=== PATIENT | female | born 1945 | race Caucasian/White ===

== ENCOUNTER 2019-10-13 14:04 | Outpatient (CLI) | payer MEDICARE, SELFPAY ==
--- NOTE | ~2019-10-13 | CT_ITS ---
EXAMINATION: CT chest w con DATE: 10/13/2019 14:29 INDICATION: Lung cancer TECHNIQUE: Transaxial computed tomographic images of the chest were obtained after the administration of 75 cc of Omnipaque 350 intravenous contrast. The dose-length product (DLP) was 196.30 mGy-cm. Ite rative reconstruction was used. COMPARISON: 07/15/2019, 04/05/2019 FINDINGS: There are changes of left partial pneumonectomy. Mild emphysema is noted. There is elevatio n of the right hemidiaphragm. The lungs are free of focal airspace opacities. There is mild dependent atelectasis. A right internal jugular Port-A-Cath ends with its tip in the distal superior vena cava . The heart size is normal. There is an approximately 3.4 x 2.5 cm subcarinal lymph node. There is mo derate thoracic spondylosis. There is a new, subtle low attenuating mass in liver segment measurin g 4.0 x 3.0 cm (image 96). IMPRESSION: 1. Enlarged subcarinal lymph node and new mass right hepatic lobe, concerning for metastatic disease. Reviewed, dictated and finalized at location A. ESSOR OF SURGERY IMPRESSION: 1. Enlarged subcarinal lymph node and new mass right hepatic lobe, concerning f or metastatic disease.
[2019-10-13 14:25] LABS: Blood Urea Nitrogen 23 mg/dL (8-26); Estimated Glomerular Filt Rate > 60
== END 2019-10-13 14:05 | disposition home or self-care (01) ==
LOC: ANHIMG 14:06
PROVIDERS: PCP Internal Medicine; Visit Provider Internal Medicine Hematology & Oncology
DX: C34.32 Malignant neoplasm of lower lobe, left bronchus or lung (principal)
CPT/HCPCS: 71260; Q9967

== ENCOUNTER 2019-10-20 13:31 | Outpatient (CLI) | payer MEDICARE, SELFPAY ==
--- NOTE | ~2019-10-20 | PE_ITS ---
EXAMINATION: PET skull to mid thigh DATE: 10/20/2019 16:05 INDICATION: Malignant neoplasm of lower lobe of left lung. TECHNIQUE: 9.976 mCi of 18-fluorodeoxyglucose (18-FDG) was administered i.v. Low dose computed tomogr aphy (CT) images were acquired from the base of the brain to the proximal thighs for attenuation clay ection and anatomic localization. Automated exposure control was employed. Dose-length product (DLP) was 694 mGy-cm. Positron emission tomography (PET) images were acquired in the same distribution. COMPARISON: Chest CT 10/13/2019, PET/CT 09/02/2018, CT 07/31/2018 FINDINGS: Head/neck: There is increased activity in the oral cavity and glottis without CT correlate, likely ph ysiologic. There are no pathologically enlarged lymph nodes. There is a right internal jugular port w ith tip at superior cavoatrial junction. Chest: There is mild emphysema. There are changes of left lower lobectomy. Calcified pulmonary nodule s and calcified hilar lymph nodes are consistent with old granulomatous disease. No pleural effusion. The heart size is normal. There are coronary artery calcifications. There is a small pericardial eff usion. There is subcarinal lymphadenopathy with increased activity. Again seen is elevation of right hemidiaphragm. There are old left rib fractures. Abdomen/pelvis/proximal thighs: There is diffuse hepatic steatosis. There is a 3.8 cm mass in segment of the liver with maximum SUV of 10.8. There are changes of cholecystectomy. There is a small sli ding hiatal hernia. Calcifications in the spleen are consistent with old granulomatous disease. The p ancreas and adrenal glands are normal. There is a 3 mm stone in right kidney. There is a 2.0 cm hemor rhagic cyst in left kidney inferior pole. There are no dilated loops of bowel. There is diverticulosi s of the colon without evidence of diverticulitis. There are no pathologically enlarged lymph nodes. There is no free intraperitoneal fluid. There is no osseous malignancy. IMPRESSION: 1. Liver mass and subcarinal lymphadenopathy with increased activity, consistent with metastatic dise ase. Reviewed, dictated and finalized at location A. NA SEARCHER IMPRESSION: 1. Liver mass and subcarinal lymphadenopathy with increased activity, consisten t with metastatic disease.
[2019-10-20 14:09] LABS: Glucose Point of Care 160 (65-105)
== END 2019-10-20 13:32 | disposition home or self-care (01) ==
PROVIDERS: PCP Internal Medicine; Visit Provider Internal Medicine Hematology & Oncology
DX: C34.32 Malignant neoplasm of lower lobe, left bronchus or lung (principal); R16.0 Hepatomegaly, not elsewhere classified; R59.0 Localized enlarged lymph nodes
CPT/HCPCS: 78815; A9552

== ENCOUNTER 2019-11-01 11:00 | Outpatient (CLI) | payer MEDICARE, SELFPAY ==
--- NOTE | ~2019-11-01 | MR_ITS ---
EXAMINATION: MR brain/brain stem wo/w con EXAM DATE: 11/01/2019 13:01 INDICATION: Left lower lobe lung cancer. TECHNIQUE: Magnetic resonance imaging (MRI) of the brain/brain stem obtained without contrast. Sagit connie T1, axial diffusion, gradient echo (T2*), T1, T2, FLAIR sequences obtained. Patient was then inj ected with 13 cc intravenous Multihance contrast. Axial and coronal postcontrast T1 weighted sequence s obtained. There is no prior study for comparison. FINDINGS: There is a small, subcentimeter right parietal bone signal abnormality, most likely venous mallory (there is no restricted diffusion within this to suggest metastatic disease). There are no areas of restricted diffusion to suggest acute infarction. There is no acute hemorrhage seen on the T2*, a hemosiderin sensitive sequence. No intraparenchymal brain mass lesion. There is mild periventricul ar and subcortical T2/FLAIR signal hyperintensity, nonspecific but probably related to small vessel i schemic disease (microangiopathy). There is moderate prominence of the sulci and ventricles related to cerebral atrophy. There are no extra-axial collections. Flow voids are seen in the cerebral ar teries on the T2-weighted sequences consistent with their expected patency. The orbits are unremarka ble. Soft tissue is unremarkable. IMPRESSION: 1. Small left parietal lobe lesion more likely venous mallory. 2. Chronic age related findings. Reviewed, dictated and finalized at location A.
== END 2019-11-01 11:01 | disposition home or self-care (01) ==
PROVIDERS: PCP Internal Medicine; Visit Provider Internal Medicine Hematology & Oncology
DX: C34.32 Malignant neoplasm of lower lobe, left bronchus or lung (principal)
CPT/HCPCS: 70553; A9577

== ENCOUNTER 2020-02-01 12:26 | Outpatient (CLI) | payer MEDICARE, SELFPAY ==
--- NOTE | ~2020-02-01 | CT_ITS ---
EXAMINATION: CT chest abdomen pelvis w con DATE: 02/01/2020 13:09 INDICATION: Malignant neoplasm of the left lower lobe TECHNIQUE: Transaxial computed tomographic images of the chest, abdomen, and pelvis were obtained aft er the administration of 100 cc of Omnipaque 350 intravenous contrast. The dose-length product (DLP) was 965.99 mGy-cm. Automated exposure control and iterative reconstruction technique were employed. COMPARISON: 10/20/2019, 10/13/2019 FINDINGS: CHEST CT: There is mild emphysema. There are changes of left lower lobectomy. Lymphadenopathy has developed in the upper anterior mediastinum with a new 3.1 x 2.9 cm lymph node mass identified. Subcarinal lymphad enopathy is stable. There is atelectasis in the right lower lobe. Calcified bilateral hilar lymph nod es are consistent with old granulomatous disease. A right internal jugular Port-A-Cath ends with its tip at the distal superior vena cava. The heart size is normal. There is no pleural effusion or pneum othorax. ABDOMEN/PELVIS CT: The previously described mass in liver segment has slightly decreased in size measuring 2.8 cm, pr eviously 3.8 cm. The liver is diffusely low in attenuation when compared with the spleen, consistent with hepatic steatosis. The gallbladder is surgically absent. Punctate calcifications in an otherwise normal spleen likely represent healed granulomatous disease. The pancreas and adrenal glands are nor mal. Cysts of the kidneys measure up to 1.8 cm on the left. Nonobstructing stones of the right kidney measure up to 3 mm. There is calcified atherosclerosis of the aorta and many of the other arteries. No pathologically enlarged abdominal or pelvic lymph nodes are identified. There is no free intraperi toneal gas or evidence of bowel obstruction. Colonic diverticulosis is present without evidence of di verticulitis. A moderate volume of colonic stool is present. There is moderate lumbar spondylosis. IMPRESSION: 1. Interval development of lymphadenopathy in the upper mediastinum, stable subcarinal lymphadenopath y, and decreased size of a right hepatic lobe mass, consistent with mixed therapy response. Reviewed, dictated and finalized at location A. IMPRESSION: 1. Interval development of lymphadenopathy in the upper mediastinum, stable sub carinal lymphadenopathy, and decreased size of a right hepatic lobe mass, consi stent with mixed therapy response.
[2020-02-01 13:00] LABS: Estimated Glomerular Filt Rate > 60
== END 2020-02-01 12:27 | disposition home or self-care (01) ==
PROVIDERS: PCP Internal Medicine; Visit Provider Internal Medicine Hematology & Oncology
DX: C34.32 Malignant neoplasm of lower lobe, left bronchus or lung (principal)
CPT/HCPCS: 36415; 71260; 74177; Q9967

== ENCOUNTER 2020-02-17 17:46 | Observation (INO) | payer MEDICARE, SELFPAY ==
--- NOTE | ~2020-02-17 | CT_ITS ---
EXAMINATION: CT brain wo con DATE: 02/17/2020 18:54 INDICATION: Right hand paresis TECHNIQUE: Computed tomography (CT) of the head was performed without intravenous contrast. The mA wa s adjusted according to patient size. Iterative reconstruction technique was employed. Exam dose: 60 5.33 mGy-cm total exam DLP. COMPARISON: 11/01/2019 MRI brain FINDINGS: Chronic lacunar infarct of the right basal ganglia. Bilateral carotid siphon internal carotid artery calcifications. There is nonspecific diminished atte nuation of the subcortical and periventricular cerebral white matter, likely due to chronic small ves melonie ischemic changes. There is moderate cerebral and cerebellar atrophy. No intracranial mass lesion or hemorrhage, midline shift or mass effect is evident. No subdural or ep idural hematoma. No fracture or bone destruction of the cranial vault. The mastoid air cells and included paranasal sinuses are normally developed and aerated. IMPRESSION: Chronic lacunar infarct of right basal ganglia Cerebral atherosclerosis and chronic small vessel ischemic changes of the cerebral white matter No acute intracranial finding Reviewed, dictated and finalized at Location A. Reviewed, dictated and finalized at location A. IMPRESSION: Chronic lacunar infarct of right basal ganglia Cerebral atherosclerosis and chronic small vessel ischemic changes of the cereb ral white matter No acute intracranial finding
[2020-02-17 17:49] VITALS: BP 158/94; PULSE 95; RESP 18; TEMP 36.9; O2SAT 96
--- NOTE | 2020-02-17 18:48 | ED.GENADULT ---
HPI - General Adult General Chief complaint: Urogenital-Female Stated complaint: UTI Time Seen by Provider: 02/17/20 18:19 Source: patient Mode of arrival: ambulatory Limitations: no limitations History of Present Illness HPI narrative: This patient is a 74 year old female with history of lung cancer with mets who presents for evaluation of a UTI. Patient states that 3 days ago she developed increased urinary frequency, dysuria. She states today her urinary frequency has worsened. She also noticed a small amount of blood in her urine. She denies nausea, vomiting, fever, or chills. Her family at bedside states he brought her to ER because he noticed that she had difficulty righting with her right hand today. PAtient states it feels better now. She denies any other complaints. Her oncologist is Dr. Abbott Related Data Home Medications Medication Instructions Recorded Confirmed aspirin 81 mg PO DAILY 11/02/19 02/17/20 bupropion HCl [Wellbutrin SR] 150 mg PO QAM 11/02/19 02/17/20 cholecalciferol (vitamin D3) 2,000 unit PO DAILY 11/02/19 02/17/20 [Vitamin D3] escitalopram oxalate [Lexapro] 5 mg PO DAILY 11/02/19 02/17/20 escitalopram oxalate [Lexapro] 10 mg PO DAILY 11/02/19 02/17/20 fenofibrate 150 mg PO DAILY 11/02/19 02/17/20 ferrous sulfate [Iron (ferrous 325 mg PO DAILY 11/02/19 02/17/20 sulfate)] magnesium 250 mg PO DAILY 11/02/19 02/17/20 metformin 500 mg PO BID 11/02/19 02/17/20 slrpanpr-bix-JX-lycopen-lutein 1 tablet PO DAILY 11/02/19 02/17/20 [Centrum Silver] omega 3-gdi-zei-fish oil [[place]-3] See Rx Instructions .ROUTE .COMPLEX 11/02/19 02/17/20 rosuvastatin [Crestor] 20 mg PO DAILY 11/02/19 02/17/20 semaglutide [Ozempic] 1 mg SUBCUT WEEKLY 01/05/20 02/17/20 Allergies Allergy/AdvReac Type Severity Reaction Status Date / Time lisinopril AdvReac Severe COUGH Verified 02/17/20 18:41 Review of Systems Review of Systems: All systems reviewed & are unremarkable except as noted in HPI and below Constitutional: Constitutional: Denies chills, Denies fever(s) and Denies weakness ENT: Denies dizziness Respiratory: Respiratory: Denies cough, Denies dyspnea and Denies wheezing Gastrointestinal: Gastrointestinal: Denies abdominal pain, Denies diarrhea, Denies nausea and Denies vomiting Genitourinary: Genitourinary: Reports hematuria, Reports nocturia and Reports dysuria Musculoskeletal: Musculoskeletal: Denies back pain Neurologic: Reports focal weakness (right hand difficulty) [facility] Past Medical History Medical History (Updated 02/18/20 @ 03:53 by Gavi Mcgee MD) Diabetes mellitus Hyperlipidemia Small cell carcinoma Surgical History Surgical History (Updated 02/17/20 @ 21:38 by Al Pandey MD) History of cholecystectomy Family History Family History Other Cerebrovascular accident Diabetes mellitus Family history of cardiovascular disease Family history of chronic obstructive pulmonary disease Family history of malignant neoplasm Hypertension Social History Social History Smoking packs per day: 1 Smoking cigarettes per day: 20.0 Years smoked: 35 Smoking pack-years: 35.00 Smoking status: Former smoker Tobacco type: cigarettes Second hand tobacco smoke exposure: Yes Smoking end date: 02/16/95 Alcohol intake: unknown Substance use: former Substance use type: does not use Gender identity (if verbalized by the patient): Female Spiritual care concerns: No Exam Narrative: Exam Narrative: GENERAL: Well-appearing, well-nourished, and in no acute distress. HEAD: Normocephalic, atraumatic EYES: PERRLA and EOMI, conjunctiva clear without discharge EARS: TM's clear bilaterally without erythema or dullness NOSE: Nares clear, no rhinorrhea or epistaxis THROAT:Mucous membranes moist, Oropharynx normal without erythema, exudate, peritonsi
[2020-02-17 19:02] LABS: Add Urine Microscopic? YES; Appearance Urine Cloudy (Clear); Bilirubin Urine Negative (Negative); Blood Urine 3+ (Negative); Color Urine Yellow (Yellow); Glucose Urine UA Negative (Negative); Ketones Urine Negative (Negative); Leukocyte Esterase Ur 3+ LEU/UL (Negative); Mucus Urine Rare /lpf; Nitrate Urine Negative (Negative); Protein Urine 2+ mg/dL (Negative); RBC Urine >75 /hpf (0-2); Specific Grav Ur 1.014 (1.001-1.035); Squamous Epithelial Cell Urine Rare /hpf (Few); WBC Urine >75 /hpf
[2020-02-17 19:08] LABS: Basophils Absolute Auto 0.1 K/mm3 (0.0-0.1); Basophils Percent Auto 0.4 % (0.2-1.2); Eosinophils Absolute Auto 0.4 K/mm3 (0-0.3); Eosinophils Percent Auto 2.4 % (0-4.4); Hematocrit 37.2 % (37.0-47.0); Hemoglobin 11.9 g/dL (12.0-15.0); Immature Granulocyte Absolute 0.06 K/mm3 (0.00-0.031); Immature Granulocyte Percent A 0.4 % (0-0.5); Lymphocytes Percent Auto 10.1 % (18.3-44.2); Mean Corpuscular Hemoglobin 30.4 pg (26-34); Mean Corpuscular Volume 95.1 fl (80-100); Mean Platelet Volume 9.3 fl (7.4-10.4); Neutrophils Absolute Auto 11.8 K/mm3 (1.3-6.7); Neutrophils Percent Auto 79.7 % (45.5-73.1); Platelet Count Result 251 k/mm3 (150-375); Red Blood Count 3.91 M/mm3 (4.2-5.4); Red Cell Distribution Width 15.3 % (11.5-14.5); White Blood Count 14.8 K/mm3 (4.5-10.0)
[2020-02-17 19:18] VITALS: BP 145/83; PULSE 90; RESP 17; O2SAT 96
[2020-02-17 19:18] LABS: INR 0.9; Partial Thromboplastin Time 27.9 SECONDS (22.3-36.8); Prothrombin Time 12.2 Seconds (11.1-14.7)
[2020-02-17 19:20] LABS: Alanine Aminotransferase 17 U/L (4-35); Albumin Level 4.3 g/dL (3.5-5.1); Alkaline Phosphatase 65 U/L (38-126); Aspartate Amino Transferase 30 U/L (14-36); Bilirubin,Total 0.2 mg/dL (0.2-1.3); Blood Urea Nitrogen 16 mg/dL (7-17); Calcium 9.5 mg/dL (8.4-10.2); Carbon Dioxide 24 mmol/L (22-30); Chloride 103 mmol/L (98-107); Estimated CRCL calculation 61 ml/min; Estimated Glomerular Filt Rate > 60; Glucose 138 mg/dL (65-105); Sodium 137 mmol/L (137-145)
[2020-02-17 20:36] VITALS: BP 148/74; PULSE 89; RESP 17; O2SAT 98
--- NOTE | 2020-02-17 21:08 | ADMGEN ---
This patient, Magdalena Waddell, was admitted to 2 Medical Room 260-. Patient/family oriented to hospital policies and general routines including ID bracelet, bed and alarms, visiting hours, pain management, procedures, bathroom and other care routines, personal items, smoking policy, room service/diet, and visiting hours. Valuables list has been completed. Pt admitted at 2049. Information on how to activate the Rapid Response Team has been discussed. Patient/Family are encouraged to report perceived risks to care and to ask questions if they do not understand what they are told or what they should do.
--- NOTE | 2020-02-17 21:27 | PM.IMHP ---
H&P: HPI History of Present Illness Chief complaint: UTI, right hand weakness, Narrative: This is a pleasant 74 year old Diabetic female with known small cell lung cancer receiving chemotherapy who presented to the hospital with urinary symptoms for the past 2 days. She complains of increased urinary frequency, pressure, and mild dysuria. She has also noticed small blood clots in her urine. This morning the patient's son also noticed that she was having difficulty writing with her right hand and stated that she felt like she was having a hard time holding the pen in her hand. She denies any recent fevers, chills, shortness of breath, headache, blurry vision, double vision, facial droop, slurred speech, numbness, tingling, chest pain, abdominal pain, difficulty swallowing, slurred speech, head trauma, passing out, or seizure like activity. In the ER tonight the patient was evaluated and found to have an abnormal urinalysis. She was treated with IV antibiotics and we have been asked to admit her to the hospital for a possible CVA/TIA? On my encounter with the patient she is asymptomatic and has no complaints at this time. I had the patient write her name and make various drawings. The patient was able to write and draw without any difficulty and admitted to me that her difficulty has resolved. Review of Systems Review of Systems: All systems reviewed & are unremarkable except as noted in HPI and below PMFSH Past Medical History Medical History (Updated 02/18/20 @ 03:53 by Gavi Mcgee MD) Diabetes mellitus Hyperlipidemia Small cell carcinoma Surgical History Surgical History (Updated 02/17/20 @ 21:38 by Al Pandey MD) History of cholecystectomy Family History Family History Other Cerebrovascular accident Diabetes mellitus Family history of cardiovascular disease Family history of chronic obstructive pulmonary disease Family history of malignant neoplasm Hypertension Social History Social History Smoking packs per day: 1 Smoking cigarettes per day: 20.0 Years smoked: 35 Smoking pack-years: 35.00 Smoking status: Former smoker Tobacco type: cigarettes Second hand tobacco smoke exposure: Yes Smoking end date: 02/16/95 Alcohol intake: unknown Substance use: former Substance use type: does not use Gender identity (if verbalized by the patient): Female Spiritual care concerns: No Meds Home Medications and Allergies Home Medications Medication Instructions Recorded Confirmed Type Centrum Silver 1 tablet PO DAILY 11/02/19 02/17/20 History [place]-3 See Rx Instructions .ROUTE .COMPLEX 11/02/19 02/17/20 History aspirin 81 mg PO DAILY 11/02/19 02/17/20 History bupropion HCl [Wellbutrin SR] 150 mg PO QAM 11/02/19 02/17/20 History cholecalciferol (vitamin D3) 2,000 unit PO DAILY 11/02/19 02/17/20 History [Vitamin D3] escitalopram oxalate [Lexapro] 5 mg PO DAILY 11/02/19 02/17/20 History escitalopram oxalate [Lexapro] 10 mg PO DAILY 11/02/19 02/17/20 History fenofibrate 150 mg PO DAILY 11/02/19 02/17/20 History ferrous sulfate [Iron (ferrous 325 mg PO DAILY 11/02/19 02/17/20 History sulfate)] magnesium 250 mg PO DAILY 11/02/19 02/17/20 History metformin 500 mg PO BID 11/02/19 02/17/20 History rosuvastatin [Crestor] 20 mg PO DAILY 11/02/19 02/17/20 History Ozempic 1 mg SUBCUT WEEKLY 01/05/20 02/17/20 History amoxicillin-pot clavulanate 1 tablet PO Q12H 5 Days #10 tablet 02/18/20 Rx Allergies Allergy/AdvReac Type Severity Reaction Status Date / Time lisinopril AdvReac Severe COUGH Verified 02/17/20 18:41 Vital Signs Vital Signs - 24 hr 02/17/20 17:49 02/17/20 19:18 02/17/20 20:36 Temperature 36.9 C Pulse Rate 95 90 89 Respiratory Rate 18 17 17 Blood Pressure 158/94 H 145/83 H 148/74 H Pulse Oximetry 96 96 98 Exam Const: General: cooperativ
[2020-02-17 21:35] VITALS: PULSE 97
[2020-02-17 22:00] VITALS: BP 139/72; PULSE 87; RESP 16; TEMP 36.5; O2SAT 94; BMI 28.2
[2020-02-17 23:22] LABS: Glucose Point of Care 126 (65-105)
[2020-02-18] VITALS: PULSE 92
[2020-02-18 04:00] VITALS: PULSE 77
[2020-02-18 06:00] VITALS: BP 108/91; PULSE 91; RESP 18; TEMP 36.7; O2SAT 96
[2020-02-18 06:21] LABS: Basophils Absolute Auto 0.1 K/mm3 (0.0-0.1); Basophils Percent Auto 0.5 % (0.2-1.2); Eosinophils Absolute Auto 0.5 K/mm3 (0-0.3); Eosinophils Percent Auto 4.7 % (0-4.4); Hematocrit 35.8 % (37.0-47.0); Hemoglobin 11.3 g/dL (12.0-15.0); Immature Granulocyte Absolute 0.04 K/mm3 (0.00-0.031); Immature Granulocyte Percent A 0.4 % (0-0.5); Lymphocytes Absolute Auto 1.58 K/mm3 (0.9-3.2); Lymphocytes Percent Auto 15.2 % (18.3-44.2); Mean Corpuscular HGB Conc 31.6 g/dl (32-36); Mean Corpuscular Hemoglobin 29.6 pg (26-34); Mean Corpuscular Volume 93.7 fl (80-100); Mean Platelet Volume 9.3 fl (7.4-10.4); Monocytes Absolute Auto 1.1 K/mm3 (0.1-0.6); Monocytes Percent Auto 10.3 % (2.6-8.5); Neutrophils Absolute Auto 7.1 K/mm3 (1.3-6.7); Neutrophils Percent Auto 68.9 % (45.5-73.1); Platelet Count Result 235 k/mm3 (150-375); Red Blood Count 3.82 M/mm3 (4.2-5.4); White Blood Count 10.4 K/mm3 (4.5-10.0)
[2020-02-18 06:33] LABS: Alanine Aminotransferase 16 U/L (4-35); Albumin Level 4.2 g/dL (3.5-5.1); Alkaline Phosphatase 56 U/L (38-126); Aspartate Amino Transferase 26 U/L (14-36); Bilirubin,Total 0.3 mg/dL (0.2-1.3); Blood Urea Nitrogen 13 mg/dL (7-17); Calcium 9.2 mg/dL (8.4-10.2); Carbon Dioxide 25 mmol/L (22-30); Chloride 102 mmol/L (98-107); Cholesterol 100 mg/dL (0-200); Estimated CRCL calculation 61 ml/min; Estimated Glomerular Filt Rate > 60; Glucose 154 mg/dL (65-105); HDL Direct 39 mg/dL; Potassium 3.6 mmol/L (3.4-5.0); Sodium 137 mmol/L (137-145); Triglycerides 121 mg/dL (<150)
[2020-02-18 06:44] LABS: LDL Cholesterol Direct 41 mg/dL
[2020-02-18 07:59] LABS: Glucose Point of Care 169 (65-105)
[2020-02-18 08:00] VITALS: PULSE 80
[2020-02-18] MEDS: metFORMIN HCL 500 MG TABLET PO (09:57)
[2020-02-18] MEDS: FERROUS SULFATE 324 MG TABLET PO (09:57)
[2020-02-18] MEDS: ESCITALOPRAM OXALATE 5 MG TABLET PO (09:57)
[2020-02-18] MEDS: ASPIRIN 81 MG CHEWABLE TABLET PO (09:57)
[2020-02-18] MEDS: MULTIVITAMINS /C LUTEIN (CENTRUM SILVER) TABLET *BKC 1 TAB PO (09:57)
[2020-02-18] MEDS: ROSUVASTATIN 10 MG TABLET 20 MG PO (09:58)
[2020-02-18] MEDS: CHOLECALCIFEROL 1,000 UNIT TABLET 2000 UNITS PO (09:58)
--- NOTE | 2020-02-18 10:00 | PM.DS ---
DS: Admitting Diagnosis Admitting Diagnosis Admitting Diagnosis: UTI DS: Discharge Diagnosis Discharge Diagnosis (1) UTI (urinary tract infection): Qualifiers: Urinary tract infection type: site unspecified Hematuria presence: with hematuria Qualified Code(s): N39.0 - Urinary tract infection, site not specified; R31.9 - Hematuria, unspecified Code(s): N39.0 - Urinary tract infection, site not specified Status: Acute Assessment and Plan: Date of Service 02/18/20 Ms. Waddell is a pleasant 74yo F with history of metastatic lung cancer, type 2 diabetes mellitus, and hyperlipidemia who presented to the ED with symptoms of urinary urgency, hesitancy and burning. UA was grossly abnormal and she was started on empiric IV antibiotic therapy with ceftriaxone. She also noted on arrival she was having difficulty writing with her right hand, which was resolved on day of discharge. CT brain showed chronic lacunar infarct of right basal ganglia, with no acute intracranial abnormalities. She had no focal neurological deficits, facial droop, or dysphasia on day of discharge. She did not know about the old CVA seen on CT and cannot recall a previous instance of stroke-like symptoms. We discussed reducing risk of subsequent strokes and she will continue on her ASA and statin therapy. She follows with Sandeep Abbott and Karin for metastatic lung cancer and has been undergoing radiation therapy. Recent PET October 2019 showed a liver mass. She will continue to follow with her oncology recommendations at discharge. She was hemodynamically stable and feeling well. Her urinary symptoms were resolved. She was discharged with oral augmentin to complete the course. After discharge, urine culture has grown multiple organisms. Blood cultures are still pending with no growth to date and will be followed to final. She was stable for discharge 02/18/20 with instructions to follow up with PCP. (2) Difficulty writing: Code(s): R68.89 - Other general symptoms and signs Status: Resolved Assessment and Plan: Admitted for ? rule out TIA. CT brain noted above. Patient is right handed. Patch Setter strength was equal BÁRBARA and she was able to write her name for me day of discharge. (3) Diabetes mellitus: Qualifiers: Diabetes mellitus type: type 2 Diabetes mellitus half-way insulin use: without half-way use Diabetes mellitus complication status: without complication Qualified Code(s): E11.9 - Type 2 diabetes mellitus without complications Code(s): E11.9 - Type 2 diabetes mellitus without complications Status: Chronic Assessment and Plan: Continue her home regimen at discharge; metformin and ozempic. (4) Hyperlipidemia: Qualifiers: Hyperlipidemia type: unspecified Qualified Code(s): E78.5 - Hyperlipidemia, unspecified Code(s): E78.5 - Hyperlipidemia, unspecified Status: Chronic Assessment and Plan: Continue her home statin therapy. (5) Small cell carcinoma: Code(s): C80.1 - Malignant (primary) neoplasm, unspecified Status: Chronic Assessment and Plan: Continue heme onc recommendations. DS: Summary Status at Discharge Overall status at discharge: patient is back to baseline Time Spent with Patient Time attestation: Total time spent providing and/or coordinating discharge services: 35 minutes Exam Narrative: Exam Narrative: Last Vital Signs Temp 98.0 F 02/18/20 06:00 Pulse 80 02/18/20 08:00 Resp 18 02/18/20 06:00 BP 108/91 H 02/18/20 06:00 Pulse Ox 96 02/18/20 06:00 General: Female resting sitting up in bed in no acute distress. HEENT: Normocephalic, EOMI, oral mucosa moist. C
== END 2020-02-18 12:10 | disposition home or self-care (01) ==
LOC: ANHED 18:19 → ANH2MED 20:24
PROVIDERS: Physician Assistant; Admitting Provider Family Medicine; Emergency Provider General Practice; PCP Internal Medicine; Visit Provider Family Medicine
DX: N39.0 Urinary tract infection, site not specified (principal); R31.9 Hematuria, unspecified; R68.89 Other general symptoms and signs; C34.90 Malignant neoplasm of unspecified part of unspecified bronchus or lung; C79.9 Secondary malignant neoplasm of unspecified site; E11.9 Type 2 diabetes mellitus without complications; E78.5 Hyperlipidemia, unspecified; Z79.899 Other long term (current) drug therapy; Z87.891 Personal history of nicotine dependence
CPT/HCPCS: 36415; 70450; 80053; 80061; 81001; 84443; 85025; 85610; 85730; 87040; 87086; 87088; 96374; 99285; A9270; G0378; J0696

== ENCOUNTER 2020-03-06 12:07 | Outpatient (CLI) | payer MEDICARE, SELFPAY ==
--- NOTE | ~2020-03-06 | MR_ITS ---
EXAMINATION: MR brain/brain stem wo con DATE: 03/06/2020 15:13 INDICATION: Other cerebral infarction. TECHNIQUE: Magnetic resonance imaging (MRI) of the brain and brainstem was performed without intraven ous contrast. Sequences included sagittal and axial T1-weighted FSE, axial diffusion-weighted FS EPI, axial T2*-weighted GRE, axial T2-weighted FLAIR Propeller, and axial T2-weighted Propeller. Apparent diffusion coefficient (ADC) maps were created. COMPARISON: Brain MRI 11/01/2019, head CT 02/17/2020 FINDINGS: There are scattered areas of nonspecific increased T2-weighted signal intensity in the cere bral white matter. There is an old lacunar infarct in the right basal ganglia. There is no intracrani al hemorrhage, acute infarction, or abnormal intracranial mass lesion. The ventricles are normal in s ize. The orbits are normal. The paranasal sinuses are clear. There is a trace right mastoid effusion. IMPRESSION: 1. Old lacunar infarct in the right basal ganglia. 2. Mild nonspecific cerebral white matter disease, which likely represents chronic small vessel ische alex disease, stable from 11/01/2019. Reviewed, dictated and finalized at location A. IMPRESSION: 1. Old lacunar infarct in the right basal ganglia. 2. Mild nonspecific cerebral white matter disease, which likely represents washer carcass alexx small vessel ischemic disease, stable from 11/01/2019.
--- NOTE | ~2020-03-06 | PE_ITS ---
EXAMINATION: PET skull to mid thigh DATE: 03/06/2020 14:14 INDICATION: Malignant neoplasm of the left lower lobe TECHNIQUE: Blood glucose level was 197 mg/dL. 9.686 mCi of 18-fluorodeoxyglucose (18-FDG) was adminis tered i.v. Low dose computed tomography (CT) images were acquired from the base of the brain to the p roximal thighs for attenuation correction and anatomic localization. Positron emission tomography (PE T) images were acquired in the same distribution beginning 61 minutes after injection. The dose-lengt h product (DLP) was 636.73 mGy-cm. COMPARISON: 02/01/2020, 10/20/2019 FINDINGS: Head/neck: There is an 8 mm lymph node adjacent to the left thyroid lobe which demonstrates abnormal FDG uptake with an SUV max of 3.6 (image 152). No additional abnormal FDG uptake is identified. Chest: There is mild emphysema. Changes of left lower lobectomy are again noted. There is atelectasis of the right lower lobe. Subcarinal lymphadenopathy with abnormal FDG uptake is stable. SUV max is 5 .7. Upper mediastinal lymphadenopathy described on recent CT scan demonstrates abnormal FDG uptake wi th an SUV max of 5.8. There is a 10 mm prevascular lymph node with abnormal FDG uptake and SUV max of 3.4. A right internal jugular Port-A-Cath ends with its tip in the superior vena cava. The heart siz e is normal. Calcified coronary artery atherosclerosis is noted. There is no pleural effusion or pneu mothorax. Abdomen/pelvis/proximal thighs: There is a mass in liver segment which demonstrates abnormal FDG u ptake and SUV max of 10.5, previously 10.8. The size of the mass does not appear to be significantly changed although direct comparison is difficult without intravenous contrast. The gallbladder is surg ically absent. Punctate calcifications in an otherwise normal spleen likely represent healed granulom atous disease. The pancreas and adrenal glands are normal. There is a 4 mm nonobstructing stone of th e right kidney. The left kidney is unremarkable. There is calcified atherosclerosis of the aorta and many of the other arteries. No pathologically enlarged abdominal or pelvic lymph nodes are identified . There is no free intraperitoneal gas or evidence of bowel obstruction. Physiologic FDG activity is present in the bowel and urinary tract. Musculoskeletal: There is new abnormal FDG uptake centered in the L4 vertebral body without definite CT correlate identified. SUV max is 9.4. IMPRESSION: 1. Upper mediastinal lymphadenopathy and left lower neck lymph node with abnormal FDG uptake, unchang ed since the recent CT but new since the comparison PET/CT, consistent with metastatic disease. 2. Right hepatic lobe mass with stable FDG uptake, consistent with metastatic disease. 3. New abnormal FDG uptake in the L4 vertebral body without definite CT correlate however findings re main concerning for metastatic disease. Reviewed, dictated and finalized at location A. IMPRESSION: 1. Upper mediastinal lymphadenopathy and left lower neck lymph node with abnorm al FDG uptake, unchanged since the recent CT but new since the comparison PET/C T, consistent with metastatic disease. 2. Right hepatic lobe mass with stable FDG uptake, consistent with metastatic d isease. 3. New abnormal FDG uptake in the L4 vertebral body without definite CT correla te however findings remain concerning for metastatic disease.
[2020-03-06 12:46] LABS: Glucose Point of Care 197 (65-105)
== END 2020-03-06 12:08 | disposition home or self-care (01) ==
LOC: ANHIMG 12:10
PROVIDERS: Family Provider Internal Medicine; PCP Internal Medicine; Visit Provider Internal Medicine Hematology & Oncology
DX: I63.89 Other cerebral infarction (principal); C34.32 Malignant neoplasm of lower lobe, left bronchus or lung; R93.0 Abnormal findings on diagnostic imaging of skull and head, not elsewhere classified
CPT/HCPCS: 70551; 78815; A9552

== ENCOUNTER 2020-04-03 11:15 | Emergency (ER) | payer MEDICARE, SELFPAY ==
[2020-04-03] VITALS (17 sets, daily range): BP systolic 123–172; BP diastolic 57–129; PULSE 88–96; RESP 12–20; TEMP 36.8; O2SAT 87–97
--- NOTE | ~2020-04-03 | XR_ITS ---
EXAMINATION: XR lumbar spine 2-3V EXAM DATE: 04/03/2020 13:13 INDICATION: Low back pain. Reportedly metastatic disease on PET/CT of L4. TECHNIQUE: Lumber spine frontal, lateral, lateral L5-S1 projections for interpretation. There is no prior study for comparison. FINDINGS: There is grade 1 anterolisthesis L5 on S1. There is subacute compression fracture at the i nferior endplate of L4, better evaluated on CT scan obtained at same time. There are no osteoblastic or osteolytic lesions identified. Advanced lower lumbar facet arthropathy. Mild to moderate upper lum bar spondylosis. There is scattered aortic arteriosclerotic disease. There are cholecystectomy clips . IMPRESSION: 1. L4 inferior endplate subacute compression fracture. 2. L4-5 grade 1 anterolisthesis. 3. Advanced lower lumbar facet arthropathy. Reviewed, dictated and finalized at location B.
--- NOTE | ~2020-04-03 | CT_ITS ---
EXAMINATION: CT lumbar spine wo [facility] EXAM DATE: 04/03/2020 13:07 INDICATION: Lung cancer, metastatic disease to L4. TECHNIQUE: Spiral CT of the lumbar spine was performed without contrast. Axial, coronal and sagittal images were reviewed. The dose-length product (DLP) for this examination was 1017.02 mGy-cm. The exposure was tailored according to patient size (auto mA exposure control), and iterative reconstruct ion (ASIR) was used as additional dose reduction technique. Correlation is made to PET/CT report 03/06. FINDINGS: There is subacute compression fracture at the inferior endplate of L4 with approximately 25 % loss of this vertebral body height. No evidence of underlying metastatic lesion to suggest this is pathological; perhaps the increased uptake was due to fracture. There is no spondylolysis. There is 3 mm anterolisthesis L4 on L5 with mild to moderate disc disease. Moderate disc disease at L5-S1. Mild to moderate upper lumbar disc disease. There are no osteoblastic or osteolytic lesions identified. I ncidental 3 cm duodenal diverticulum. Scattered colonic diverticulosis. 3 mm right inferior calyceal stone. Level by level evaluation: T12-L1: There is a mild diffuse disc bulge. Facet arthropathy: Mild. Neural foraminal stenosis: No stenosis. Central canal stenosis: No stenosis. L1-L2: There is a mild diffuse disc bulge. Facet arthropathy: Mild. Neural foraminal stenosis: Mild bilateral. Central canal stenosis: Mild. L2-L3: There is a mild to moderate diffuse disc bulge. Facet arthropathy: Mild. Neural foraminal stenosis: Mild bilateral. Central canal stenosis: Mild. L3-L4: There is a mild diffuse disc bulge. Facet arthropathy: Mild to moderate. Neural foraminal stenosis: Mild bilateral. Central canal stenosis: Mild to moderate. L4-L5: There is a moderate diffuse disc bulge. Facet arthropathy: Severe. Neural foraminal stenosis: Moderate left, mild to moderate right. Central canal stenosis: Moderate. L5-S1: There is a mild to moderate diffuse disc bulge. Facet arthropathy: Mild to moderate. Neural foraminal stenosis: Moderate to severe bilateral. Central canal stenosis: Mild. IMPRESSION: 1. Subacute L4 compression fracture without evidence of underlying metastatic disease. 2. L5-S1 moderate to severe bilateral neural foraminal stenosis. 3. L4-5 grade 1 anterolisthesis, severe facet arthropathy, moderate central canal stenosis. Reviewed, dictated and finalized at location B. IMPRESSION: 1. Subacute L4 compression fracture without evidence of underlying metastatic disease. 2. L5-S1 moderate to severe bilateral neural foraminal stenosis. 3. L4-5 grade 1 anterolisthesis, severe facet arthropathy, moderate central ca nal stenosis.
--- NOTE | 2020-04-03 12:19 | ED.RECABL ---
HPI - Recheck/Abnormal Lab/Rx General Chief Complaint: Recheck/Abnormal Lab/Rx Stated Complaint: back pain Time Seen by Provider: 04/03/20 12:03 Source: patient Mode of arrival: ambulatory Limitations: other (Forgetfulness) History of Present Illness HPI narrative: Patient presents because her primary care physician, Dr.V. Aristeo Ochoa told her to come in. He said that her study showed that she could become paralyzed from cancer in her spine. The patient thinks the CAT scan or MRI was done here but there is no record of it. Her oncologist is Dr. Abbott. She is still getting chemotherapy. She previously had lung cancer with radiation and surgery. The surgery was either French or so and she cannot remember. She has back pain when she walks but not when she lays down or sits. Related Data Home Medications Medication Instructions Recorded Confirmed Centrum Silver 1 tablet PO DAILY 11/02/19 03/29/20 [place]-3 See Rx Instructions .ROUTE .COMPLEX 11/02/19 03/29/20 bupropion HCl [Wellbutrin SR] 150 mg PO QAM 11/02/19 03/29/20 cholecalciferol (vitamin D3) 2,000 unit PO DAILY 11/02/19 03/29/20 [Vitamin D3] fenofibrate 150 mg PO DAILY 11/02/19 03/29/20 ferrous sulfate [Iron (ferrous 325 mg PO DAILY 11/02/19 03/29/20 sulfate)] magnesium 250 mg PO DAILY 11/02/19 03/29/20 metformin 500 mg PO BID 11/02/19 03/29/20 rosuvastatin [Crestor] 20 mg PO DAILY 11/02/19 03/29/20 apple cider vinegar mg PO 04/03/20 Allergies Allergy/AdvReac Type Severity Reaction Status Date / Time lisinopril AdvReac Severe COUGH Verified 02/17/20 18:41 Review of Systems Review of Systems: Narrative: CONSTITUTIONAL: Denies fever, chills, or sweat ENT: Denies rhinorrhea, congestion, sore throat, or otalgia. CARDIOVASCULAR: Denies chest pain, palpitations, or edema. RESPIRATORY: Denies cough or dyspnea. GASTROINTESTINAL: Denies abdominal pain, nausea, vomiting, or diarrhea. MUSCULOSKELETAL: She has low back pain, but not joint pain, or myalgia. NEUROLOGIC: Denies headache, numbness, or weakness. All systems reviewed & are unremarkable except as noted in HPI and below PMFSH Past Medical History Medical History (Updated 04/03/20 @ 14:15 by Cindy Wynn MD) Diabetes mellitus Hyperlipidemia Small cell carcinoma Surgical History Surgical History (Updated 04/03/20 @ 12:27 by Cindy Wynn MD) History of cholecystectomy History of lobectomy of lung Family History Family History Other Cerebrovascular accident Diabetes mellitus Family history of cardiovascular disease Family history of chronic obstructive pulmonary disease Family history of malignant neoplasm Hypertension Social History Social History Smoking packs per day: 1 Smoking cigarettes per day: 20.0 Years smoked: 35 Smoking pack-years: 35.00 Smoking status: Former smoker Tobacco type: cigarettes Second hand tobacco smoke exposure: Yes Smoking end date: 02/16/95 Alcohol intake: unknown Substance use: former Substance use type: does not use Gender identity (if verbalized by the patient): Female Spiritual care concerns: No Exam Narrative: Exam Narrative: GENERAL: Well-appearing, well-nourished, and in no acute distress. HEAD: Normocephalic, atraumatic. EYES: PERRLA and EOMI. ENT: Nares clear, no rhinorrhea or epistaxis. Mucous membranes moist. NECK: Supple. CHEST: Clear to auscultation. No respiratory distress. HEART: Regular rate and rhythm. No murmur heard. Normal peripheral pulses. ABDOMEN: Soft, nontender, nondistended, normal active bowel sounds. EXTREMITIES: Normal range of motion. No edema. SKIN: Warm, dry, no rash. NEURO: No focal deficits. Alert and oriented x3. Some confusion. PSYCH: Normal mood and affect. Course Reevaluation(s) Reevaluation #1: Patient is feeling better. She is delighted to know that the CAT scan rep
--- NOTE | 2020-04-03 14:10 | PC.NURSE ---
EDP aware of Pt. fentanyl patch. EDP is ok with administration of percocet.
[2020-04-03] MEDS: oxyCODONE/ACETAMINOPHEN 5-325 MG TABLET 1 TABLET PO (14:19)
== END 2020-04-03 14:25 | disposition home or self-care (01) ==
PROVIDERS: Emergency Provider Emergency Medicine; PCP Internal Medicine
DX: C34.90 Malignant neoplasm of unspecified part of unspecified bronchus or lung (principal); M48.56XA Collapsed vertebra, not elsewhere classified, lumbar region, initial encounter for fracture; C79.9 Secondary malignant neoplasm of unspecified site; E11.9 Type 2 diabetes mellitus without complications; Z79.84 Long term (current) use of oral hypoglycemic drugs; E78.5 Hyperlipidemia, unspecified
CPT/HCPCS: 72100; 72131; 99284; A9270

== ENCOUNTER 2020-05-07 09:40 | Observation (INO) | payer MEDICARE, SELFPAY ==
[2020-05-07] VITALS (48 sets, daily range): BP systolic 90–143; BP diastolic 55–102; PULSE 90–109; RESP 11–22; TEMP 36.1–37; O2SAT 91–98; BMI 25.8
--- NOTE | ~2020-05-07 | CT_ITS ---
EXAMINATION: CT brain wo con EXAM DATE: 05/07/2020 10:52 INDICATION: Lung cancer, altered mental status. Looking for metastatic disease. TECHNIQUE: Spiral CT of the head was performed without contrast. Axial, coronal and sagittal images were reviewed. The dose-length product (DLP) for this examination was 605.33 mGy-cm. The exposure w as tailored according to patient size, and iterative reconstruction (ASIR) was used as additional dos e reduction technique. Comparison is made to prior examination from 10/22/2019. FINDINGS: Punctate old right basal ganglia lacunar infarction. There is no acute intraparenchymal hem orrhage. No evidence of intraparenchymal brain mass lesion. No evidence of acute infarction. Pleas e note that initial head CT has limited sensitivity for small or acute infarctions. There is mild to moderate periventricular and subcortical hypodensity, nonspecific but probably related to small vesse l ischemic disease. There is mild to moderate prominence of the sulci and ventricles related to cer ebral atrophy. There is intracranial carotid arteriosclerosis. There are no extra-axial collection s. There is no mass effect or midline shift. The orbits are unremarkable. Soft tissue is unremarka ble. The visualized sinuses and mastoid air cells are well aerated. IMPRESSION: 1. No evidence of intracranial metastatic disease on this noncontrast head CT. 2. Chronic age related findings. 3. Old punctate right lacunar infarction. Reviewed, dictated and finalized at location B.
--- NOTE | ~2020-05-07 | XR_ITS ---
EXAMINATION: XR chest 2V EXAM DATE: 05/07/2020 10:58 INDICATION: Cough and shortness of breath. History left-sided lung cancer. TECHNIQUE: Frontal and lateral projections of the chest obtained and reviewed. Comparison is made to prior examination from 12/02/2018. FINDINGS: Some left-sided volume loss probably from partial pneumonectomy. Right hemidiaphragm eleva tion with improvement compared to prior study. There is a right-sided internal jugular approach port acatheter. Line is intact and tip is just below the ofelia level. Cardiomediastinal silhouette is nor mal. There is pulmonary vascular congestion. Subsegmental retrocardiac opacity again noted, most consistent with scarring or atelectasis. Right tess ng is clear. No pleural effusions. No pneumothorax. There are bony degenerative changes. There are ch olecystectomy clips. IMPRESSION: 1. Subsegmental retrocardiac chronic opacity probably scarring or atelectasis. Reviewed, dictated and finalized at location B.
--- NOTE | ~2020-05-07 | MR_ITS ---
EXAMINATION: MR brain/brain stem wo/w con EXAM DATE: 05/08/2020 16:05 INDICATION: Confusion, speech disturbance. History of cancer with metastatic disease. TECHNIQUE: Magnetic resonance imaging (MRI) of the brain/brain stem obtained without contrast. Sagit connie T1, axial diffusion, gradient echo (T2*), T1, T2, FLAIR sequences obtained. Patient was then inj ected with 12 cc intravenous Multihance contrast. Axial and coronal postcontrast T1 weighted sequence s obtained. Comparison is made to prior examination from 03/06/2020. FINDINGS: There are no areas of restricted diffusion to suggest acute infarction. There is no acute hemorrhage seen on the T2*, a hemosiderin sensitive sequence. No intraparenchymal brain mass lesion. There is mild to moderate periventricular and subcortical T2/FLAIR signal hyperintensity, nonspecifi c but probably related to small vessel ischemic disease (microangiopathy). There is mild to moderat e prominence of the sulci and ventricles related to cerebral atrophy. There are no extra-axial joe ections. Flow voids are seen in the cerebral arteries on the T2-weighted sequences consistent with t heir expected patency. The orbits are unremarkable. Soft tissue is unremarkable. There are no area s of abnormal enhancement on the postcontrast images, although these sequences are limited from patie nt motion. There is no significant interval change. IMPRESSION: 1. No acute intracranial findings. 2. Chronic age related findings. Reviewed, dictated and finalized at location G.
--- NOTE | 2020-05-07 10:25 | ED.AMS ---
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 with history of metastatic lung cancer Recently having pain medication titrated upward for a pathologic spine fracture Also was apparently seen in her oncologist's office last week and had a elevated white count at that time, she was supposed to take oral antibiotics possibly for UTI but it is unclear if this occurred Arrives today with family who complains she has become increasingly somnolent and confused over the past few days The patient herself voices no new complaints, does have back pain MD complaint: altered mental status Consistency of symptoms: getting Worse Context: change in medication and cancer Related Data Home Medications Medication Instructions Recorded Confirmed Centrum Silver 1 tablet PO DAILY 11/02/19 04/25/20 [place]-3 See Rx Instructions .ROUTE .COMPLEX 11/02/19 04/25/20 bupropion HCl [Wellbutrin SR] 150 mg PO QAM 11/02/19 04/25/20 cholecalciferol (vitamin D3) 2,000 unit PO DAILY 11/02/19 04/25/20 [Vitamin D3] fenofibrate 150 mg PO DAILY 11/02/19 04/25/20 ferrous sulfate [Iron (ferrous 325 mg PO DAILY 11/02/19 04/25/20 sulfate)] magnesium 250 mg PO DAILY 11/02/19 04/25/20 metformin 500 mg PO BID 11/02/19 04/25/20 rosuvastatin [Crestor] 20 mg PO DAILY 11/02/19 04/25/20 fentanyl 1 patch TRANSDERMAL Q72H 05/03/20 05/03/20 oxycodone-acetaminophen 1 tablet PO Q4H PRN 05/03/20 05/03/20 alpha lipoic acid mg 05/07/20 aspirin 05/07/20 diphenhydramine HCl 05/07/20 escitalopram oxalate 05/07/20 rosuvastatin [Crestor] mg 05/07/20 Allergies Allergy/AdvReac Type Severity Reaction Status Date / Time lisinopril AdvReac Severe COUGH Verified 05/07/20 10:39 Review of Systems Review of Systems: All systems reviewed & are unremarkable except as noted in HPI and below Constitutional: Constitutional: Denies chills, Reports fatigue, Denies fever(s), Denies headache(s) and Denies night sweats Eyes: Eyes: Reports no additional eye complaints, Denies loss of vision and Denies other visual disturbances ENT: Denies headache(s), Denies hoarseness, Denies nasal congestion and Denies sore throat Cardiovascular: Cardiovascular: Denies chest pain, Denies leg edema, Denies palpitations and Denies dyspnea Respiratory: Respiratory: Denies cough, Denies dyspnea and Denies wheezing Gastrointestinal: Gastrointestinal: Denies abdominal pain, Denies diarrhea, Reports nausea and Denies vomiting Genitourinary: Genitourinary: Denies hematuria, Denies urinary frequency and Denies dysuria Musculoskeletal: Musculoskeletal: Denies abnormal gait, Reports back pain, Denies deformity, Reports arthralgias, Denies joint swelling, Denies muscle weakness and Denies numbness Integumentary/Breasts: Skin/Breast: Denies rash, Denies unusual bruising and Denies wounds Neurologic: Denies abnormal gait, Reports dizziness, Denies headache(s), Denies focal weakness, Denies loss of vision, Denies numbness and Reports weakness Psychiatric: Psychiatric: Reports no additional psychiatric complaints Endocrine: Endocrine: Reports fatigue and Denies palpitations Hematologic/Lymphatic: Hematologic/Lymphatic: Denies easy bleeding and Denies easy bruising Allergic/Immunologic: Allergic/Immunologic: Denies wheezing PMF Past Medical History Medical History (Updated 05/07/20 @ 14:45 by Shayne Leos MD) Diabetes mellitus Hyperlipidemia Small cell carcinoma Surgical History Surgical History (Updated 04/03/20 @ 12:27 by Cindy Wynn MD) History of cholecystectomy History of lobectomy of lung Social History Social History Smoking packs per day: 2 Smoking cigarettes per day: 40.0 Years
[2020-05-07] MEDS: LACTATED RINGERS 1,000 ML 999 ML IV CONT ×2 (10:31→15:30)
[2020-05-07 10:37] LABS: Alveolar/Arterial O2 Gradient 41.7 mmHg; Base Excess ABG 0.5 mEq/l (+/-2.0); Basophils Percent Auto 0.3 % (0.2-1.2); Device ROOM AIR; Eosinophils Absolute Auto 0.3 K/mm3 (0-0.3); Eosinophils Percent Auto 2.8 % (0-4.4); Fractional Inspired Oxygen 21 %; HCO3 ABG 25.7 mEq/l (22.0-26.0); Hematocrit 31.6 % (37.0-47.0); Hemoglobin 9.8 g/dL (12.0-15.0); Immature Granulocyte Absolute 0.06 K/mm3 (0.00-0.031); Immature Granulocyte Percent A 0.5 % (0-0.5); Lymphocytes Absolute Auto 0.88 K/mm3 (0.9-3.2); Lymphocytes Percent Auto 7.9 % (18.3-44.2); Mean Corpuscular Hemoglobin 27.7 pg (26-34); Mean Corpuscular Volume 89.3 fl (80-100); Mean Platelet Volume 9.5 fl (7.4-10.4); Modified Allen's Test Pass; Monocytes Absolute Auto 0.7 K/mm3 (0.1-0.6); Monocytes Percent Auto 6.2 % (2.6-8.5); Neutrophils Absolute Auto 9.2 K/mm3 (1.3-6.7); Neutrophils Percent Auto 82.3 % (45.5-73.1); Oxygen Content ABG 13.8 %vol (16.0-22.0); Oxygen Saturation ABG 88.5 % (95.0-100.0); Oxyhemoglobin 91.4 % THb (90.0-100.0); PCO2 ABG 43.8 mmHg (35.0-45.0); PO2 ABG 55.6 mmHg (80.0-100.0); PO2 FiO2 Ratio Arterial Blood 2.65 %; Platelet Count Result 290 k/mm3 (150-375); Red Blood Count 3.54 M/mm3 (4.2-5.4); Site Drawn RIGHT RADIAL; Total Hemoglobin 10.7 g/dL (12.0-18.0); White Blood Count 11.2 K/mm3 (4.5-10.0); pH ABG 7.386 (7.350-7.450)
[2020-05-07 10:43] LABS: Add Urine Microscopic? YES; Amorphous Sediment Urine Few; Appearance Urine Cloudy (Clear); Bacteria Urine Trace /hpf; Bilirubin Urine Negative (Negative); Blood Urine Negative (Negative); Color Urine Yellow (Yellow); Glucose Urine UA Negative (Negative); Ketones Urine Negative (Negative); Leukocyte Esterase Ur Trace LEU/UL (Negative); Mucus Urine Rare /lpf; Nitrate Urine Negative (Negative); Protein Urine 1+ mg/dL (Negative); RBC Urine 0-2 /hpf (0-2); Specific Grav Ur 1.018 (1.001-1.035); Squamous Epithelial Cell Urine Occasional /hpf (Few)
[2020-05-07 10:50] LABS: Alanine Aminotransferase 12 U/L (4-35); Albumin Level 3.4 g/dL (3.5-5.1); Alkaline Phosphatase 163 U/L (38-126); Anion Gap 6 mmol/L (8-16); Aspartate Amino Transferase 27 U/L (14-36); Bilirubin,Total 0.4 mg/dL (0.2-1.3); Blood Urea Nitrogen 15 mg/dL (7-17); Calcium 8.5 mg/dL (8.4-10.2); Carbon Dioxide 28 mmol/L (22-30); Chloride 97 mmol/L (98-107); Estimated CRCL calculation 74 ml/min; Estimated Glomerular Filt Rate > 60; Glucose 182 mg/dL (65-105); Magnesium 1.6 mg/dL (1.6-2.3); Sodium 131 mmol/L (137-145)
[2020-05-07 11:01] LABS: Troponin I < 0.012 ng/mL (0.000-0.034)
[2020-05-07 14:53] LABS: Lactic Acid Reflex 0.6 mmol/L (0.7-2.1)
--- NOTE | 2020-05-07 16:20 | PC.NURSE ---
This patient, Magdalena Waddell, was admitted to Medical Room 340-01. Patient/family oriented to hospital policies and general routines including ID bracelet, bed and alarms, visiting hours, pain management, procedures, bathroom and other care routines, personal items, smoking policy, room service/diet, and visiting hours. Valuables list has been completed. Information on how to activate the Rapid Response Team has been discussed. Patient/Family are encouraged to report perceived risks to care and to ask questions if they do not understand what they are told or what they should do.
[2020-05-07] MEDS: LACTATED RINGERS 1,000 ML 125 ML IV CONT (16:48)
--- NOTE | 2020-05-07 18:50 | PC.NURSE ---
Pt pharmacy contacted about what meds are taken at home as well as the was contacted. Med list that was sent with the pt was reviewed as well.
--- NOTE | 2020-05-07 23:30 | PM.IMHP ---
H&P: HPI History of Present Illness Date/Time: 05/07/20 23:30 Chief complaint: Altered mental status. 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 While she is alert and oriented x4 at the time my evaluation, she is repetitive and at times gives bizarre answers but is able to be redirected. Because of this, I have supplemented some of this history via a review of her electronic medical records. On routine lab work done at Dr. Abbott office last week, she was found to have an elevated white blood cell count and a subsequent urinalysis was concerning for UTI. She was started on ciprofloxacin b.i.d. and it is noted that her urine culture dated 05/03 grew out group G Streptococcus. She has been taking her antibiotics but continues to have some mild low back pain and dysuria. More recently she had an increase in her fentanyl dose from 50 to 100 mcg due to ongoing pain from osseous metastatic disease, and in fact recently started palliative radiation to the L4 vertebral body per Dr. Frazier. In any regard, when she woke this morning she was confused, reportedly alert x1, and EMS was summoned. Aside from mild leukocytosis, her workup was relatively unrevealing in the emergency department and she is being admitted overnight for further evaluation. When I come to see the patient, she is sitting in a chair at bedside and is watching television. She is in good spirits and has no complaints. She is aware why she was brought to the hospital today but is uncertain as to why she would have been confused this morning. It sounds as though her Laurent gives her her medications and she denies that she could have accidentally overdosed. She has not had fever, chills, or sweats. She denies chest pain and shortness of breath. She has had a mild cough which she attributes to recent thrush, and it does not sound as though it is productive. She complains of mild discomfort in her lower back, but cannot really describe it, and does not seem to be terribly uncomfortable. Review of Systems Review of Systems: Narrative: Twelve systems were reviewed with pertinent positives and negatives as per HPI. She denies fever, chills, and sweats. No recent travel or sick contacts. No exposure to those positive with COVID-19. She denies dysphagia and concerns for aspiration. No chest pain or shortness of breath. Her appetite is not good tonight, but she denies nausea and vomiting. No diarrhea or constipation, reportedly. She has not had any falls, near syncope, or syncope. Except as documented, all other systems were reviewed and are negative. [facility] Past Medical History Medical History (Updated 05/08/20 @ 01:08 by Bharti Esquivel PA-C) Dyslipidemia Essential hypertension History of colon polyps Large cell neuroendocrine carcinoma Initially diagnosed with stage IIB large cell neuroendocrine carcinoma arising in the left lower lobe with metastatic disease to the lymph nodes, status post lobectomy 10/21/2018 and adjuvant chemotherapy. PET scan in October 2019 demonstrated metastatic disease in the liver and now bony mets to the L4 vertebra for which she is receiving palliative radiation. Osteoarthritis Type 2 diabetes mellitus Surgical History Surgical History (Updated 05/08/20 @ 00:58 by Bharti Esquivel PA-C) History of cholecystectomy History of left knee replacement History of lobectomy of lung (~10/21/18) Family History Family History Other Cerebrovascular accident Diabetes mellitus Family history of cardiovascular disease Family history of chronic obstructive pulmonary disease Family history of malignant neoplasm Hypertension Social History Social History (Updated 05/08/20
[2020-05-08] VITALS (9 sets, daily range): BP systolic 130–144; BP diastolic 63–74; PULSE 93–125; RESP 16–18; TEMP 36.3–36.7; O2SAT 95–97
[2020-05-08] MEDS: fentaNYL CITRATE INJ (*CRX) 100 MCG/2 ML VIAL 50 MCG IV PUSH (01:13)
--- NOTE | 2020-05-08 01:19 | ECG_ITS ---
Measurements Intervals [place] Rate: 102 P: 41 CO: 142 QRS: 54 QRSD: 96 T: 51 QT: 326 QTc: 425 Interpretive Statements SINUS TACHYCARDIA VENTRICULAR PREMATURE COMPLEX DELAYED PRECORDIAL R/S TRANSITION BASELINE ARTIFACT- I, II, AVR, AVL, V1 BORDERLINE ECG Electronically Signed On 05-08-2020 12:13:27 CDT by Sandoval Lutz D.O.
[2020-05-08 07:49] LABS: Glucose Point of Care 207 (65-105)
[2020-05-08 07:52] LABS: Basophils Percent Auto 0.4 % (0.2-1.2); Eosinophils Absolute Auto 0.3 K/mm3 (0-0.3); Eosinophils Percent Auto 2.8 % (0-4.4); Hematocrit 32.9 % (37.0-47.0); Hemoglobin 10.4 g/dL (12.0-15.0); Immature Granulocyte Absolute 0.08 K/mm3 (0.00-0.031); Immature Granulocyte Percent A 0.7 % (0-0.5); Lymphocytes Absolute Auto 0.72 K/mm3 (0.9-3.2); Lymphocytes Percent Auto 6.3 % (18.3-44.2); Mean Corpuscular HGB Conc 31.6 g/dl (32-36); Mean Corpuscular Volume 88.4 fl (80-100); Mean Platelet Volume 9.4 fl (7.4-10.4); Monocytes Absolute Auto 0.9 K/mm3 (0.1-0.6); Monocytes Percent Auto 7.6 % (2.6-8.5); Neutrophils Absolute Auto 9.4 K/mm3 (1.3-6.7); Neutrophils Percent Auto 82.2 % (45.5-73.1); Platelet Count Result 319 k/mm3 (150-375); Red Blood Count 3.72 M/mm3 (4.2-5.4); Red Cell Distribution Width 15.9 % (11.5-14.5); White Blood Count 11.4 K/mm3 (4.5-10.0)
[2020-05-08] MEDS: INSULIN ASPART (*BKC) 100 UNITS/ML SUB-Q ×2 (07:57→11:49)
[2020-05-08] MEDS: ROSUVASTATIN 10 MG TABLET 20 MG PO (08:02)
[2020-05-08] MEDS: ENOXAPARIN 40 MG/0.4 ML SYRINGE SUB-Q (08:02)
[2020-05-08] MEDS: ESCITALOPRAM OXALATE 10 MG TABLET PO (08:02)
[2020-05-08] MEDS: MAGNESIUM OXIDE 400 MG TABLET PO (08:02)
[2020-05-08] MEDS: FENOFIBRATE 160 MG TABLET PO (08:03)
[2020-05-08] MEDS: ASPIRIN 81 MG CHEWABLE TABLET PO (08:03)
[2020-05-08] MEDS: CHOLECALCIFEROL 400 UNITS TABLET (VIT D) PO (08:03)
[2020-05-08] MEDS: THERAPEUTIC MULTIVITAMINS/MINERALS TAB (*BKC) 1 TABLET PO (08:03)
[2020-05-08 08:06] LABS: Anion Gap 9 mmol/L (8-16); Blood Urea Nitrogen 5 mg/dL (7-17); Calcium 8.5 mg/dL (8.4-10.2); Carbon Dioxide 24 mmol/L (22-30); Chloride 95 mmol/L (98-107); Estimated CRCL calculation 95 ml/min; Estimated Glomerular Filt Rate > 60; Glucose 216 mg/dL (65-105); Potassium 3.9 mmol/L (3.4-5.0); Sodium 128 mmol/L (137-145)
[2020-05-08] MEDS: fentaNYL (*CRX) 50 MCG PATCH TRANSDERM (09:36)
--- NOTE | 2020-05-08 10:47 | PM.IMPN ---
Progress Note: A&P Assessment and Plan (1) Confusion: Code(s): R41.0 - Disorientation, unspecified Status: Acute Assessment and Plan: Resolved today. CT brain shows old punctate right lacunar infarct without acute intracranial findings. MRI brain performed late this afternoon, still pending a final read. Hopeful for discharge tomorrow once results are back to rule out stroke and metastasis. Suspect this may have been related to the recent increase in her fentanyl from 50mcg to 100mcg. We will cut Fentanyl back to 50mcg and monitor. She is doing much better with this. 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 Suspect narcotic use/recent increase may have caused her confusion. (3) Large cell neuroendocrine carcinoma: Code(s): C7A.8 - Other malignant neuroendocrine tumors Status: Chronic Assessment and Plan: Follows with Dr Abbott and Dr Frazier for metastatic lung cancer, now recently last week started palliative radiation to L4. (4) Back pain: Qualifiers: Back pain location: back pain in unspecified location Chronicity: chronic Back pain laterality: unspecified Qualified Code(s): M54.9 - Dorsalgia, unspecified; G89.29 - Other chronic pain Code(s): M54.9 - Dorsalgia, unspecified Status: Chronic Assessment and Plan: Mets to bone. Continue home pain regimen but cut Fentanyl back to 50mcg. (5) Essential hypertension: Code(s): I10 - Essential (primary) hypertension Status: Chronic Assessment and Plan: BP stable, resume her home losartan and monitor BP. (6) Type 2 diabetes mellitus: Qualifiers: Diabetes mellitus fci insulin use: without fci use Diabetes mellitus complication status: without complication Qualified Code(s): E11.9 - Type 2 diabetes mellitus without complications Code(s): E11.9 - Type 2 diabetes mellitus without complications Status: Chronic Assessment and Plan: Resume home oral hypoglycemics. Missed her weekly Ozempic yesterday so OK to give today. Blood glucoses elevated, will monitor with accu-cheks and cover with SSI. (7) Hyponatremia: Code(s): E87.1 - Hypo-osmolality and hyponatremia Status: Acute Assessment and Plan: Down to 128. Recheck BMP in AM. Subjective Date/time seen: 05/08/20 0900 Interval history: Ms. 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 She feels improved today and feels back to her normal other than feeling weak and fatigued. She notes some mild nausea this morning but has tolerated breakfast. Denies vomiting or abdominal pain. She denies chest pain or shortness of breath. Review of Systems Review of Systems: Narrative: Twelve systems were reviewed with pertinent positives and negatives as per HPI. Exam Narrative: Exam Narrative: General: Chronically ill-appearing female resting sitting up in bed in no acute distress. HEENT: Normocephalic, EOMI, oral mucosa moist. Cardiovascular: Rate and rhythm are regular. Respiratory: Lungs clear to auscultation in all zarco. Non-labored breathing. Tolerating room air. Abdomen: Soft, non-tender, non-distended, bowel sounds present. Extremities: Peripheral pulses intact. No edema. Neuro: Alert and oriented. Answering questions appropriately. No focal neurological deficits. Speech is clear. Objective Data Vital Signs Vital Signs: Last Vital Signs Temp 98.1 F 05/08/20 14:00 Pulse 101 H 05/08/20 14:00 Resp 16 05/08/20 14
[2020-05-08 11:44] LABS: Glucose Point of Care 219 (65-105)
[2020-05-08] MEDS: LORazepam (*CRX) 0.5 MG TABLET PO ×2 (13:05→21:21)
[2020-05-08] MEDS: CENTRAL LINE FLUSH 10 ML IV PUSH ×2 (13:06→21:23)
[2020-05-08 16:39] LABS: Glucose Point of Care 183 (65-105)
[2020-05-08] MEDS: metFORMIN HCL 500 MG TABLET PO (17:13)
--- NOTE | 2020-05-08 17:33 | PDONCCN ---
HPI - Date of Consult Date/Time: 05/08/20 17:34 Requesting Physician: RENEE Haley Primary Care Provider: Adilia Gandara, - Consult Narrative Reason for consult: Metastatic non-small cell lung cancer Narrative: Magdalena Waddell is a 74 year old female This is a pleasant 74-year-old female with widely diagnosis stage II neuroendocrine carcinoma of the left lower lobe status post lobectomy in October of 2018. Unfortunately she relapsed with extensive stage small-cell lung cancer with liver involvement in October of 2019. She started second-line chemotherapy with irinotecan on March 22, 2020. She received cycle 3 day 1 on May 03. She now came into the hospital with altered mental status. MRI of the brain was performed that showed no acute intracranial findings. She was started on ciprofloxacin for UTI recently. She remains quite anxious today. She denies any dysuria today. Denies any bleeding and bruising. No fevers and chills. No cough and shortness of breath. No other new complaints. Review of Systems - Review of Systems All systems reviewed & are unremarkable except as noted in HPI and bel - Neurologic Reports weakness, Denies abnormal gait, Denies headache(s), Denies focal weakness, Denies loss of vision, Denies numbness PMFSH Medical History: Medical History (Last Updated 05/08/20 @ 00:58 by Bharti Esquivel PA-C) Dyslipidemia Essential hypertension History of colon polyps Large cell neuroendocrine carcinoma Initially diagnosed with stage IIB large cell neuroendocrine carcinoma arising in the left lower lobe with metastatic disease to the lymph nodes, status post lobectomy 10/21/2018 and adjuvant chemotherapy. PET scan in October 2019 demonstrated metastatic disease in the liver and now bony mets to the L4 vertebra for which she is receiving palliative radiation. Osteoarthritis Type 2 diabetes mellitus Surgical History: Surgical History (Last Updated 05/08/20 @ 00:58 by Bharti Esquivel PA-C) History of cholecystectomy History of left knee replacement History of lobectomy of lung Onset Date: ~10/21/18 Family History: Family History (Last Reviewed 05/08/20 @ 00:58 by Bharti Esquivel PA-C) Other Cerebrovascular accident Diabetes mellitus Family history of cardiovascular disease Family history of chronic obstructive pulmonary disease Family history of malignant neoplasm Hypertension - Social History Social History: Social History (Last Updated 05/08/20 @ 00:59 by Bharti Esquivel PA-C) Gender Identity: Gender identity (if verbalized by the patient): Female Alcohol Use: Alcohol intake: former Substance Use: Substance use: never Substance use type: does not use Others: Spiritual care concerns: No Smoking Status: Smoking status: Former smoker Tobacco type: cigarettes Second hand tobacco smoke exposure: Yes Smoking end date: 02/16/95 Smoking Pack-years: Smoking packs per day: 2 Smoking cigarettes per day: 40.0 Years smoked: 37 Smoking pack-years: 74.00 Meds Home Medications Medication Instructions Recorded Confirmed Type bupropion HCl [Wellbutrin SR] 150 mg PO BID 11/02/19 05/07/20 History fenofibrate 150 mg PO DAILY 11/02/19 05/07/20 History rosuvastatin [Crestor] 20 mg PO DAILY 11/02/19 05/07/20 History fentanyl 1 patch TRANSDERMAL Q72H 05/03/20 05/07/20 History alpha lipoic acid 300 mg PO TID 05/07/20 05/07/20 History aspirin 81 mg PO DAILY 05/07/20 05/07/20 History cholecalciferol (vitamin D3) 400 unit PO DAILY 05/07/20 05/07/20 History [Vitamin D3] ciprofloxacin HCl 500 mg PO BID 05/07/20 05/07/20 History diphenhydramine HCl [Allergy 12.5 mg PO Q6-8H PRN 05/07/20 05/07/20 History (diphenhydramine)] escitalopram oxalate 10 mg PO DAILY 05/07/20 05/07/20 History fenofibrate 160 mg PO DAILY 05/07/20 05/07/20 History fenofibrate nanocrystallized 145
--- NOTE | 2020-05-08 19:26 | PC.NURSE ---
At 1900 patient spouse gave me Ozempic. I gave it to shift manager nurse during report to send to [facility] .
--- NOTE | 2020-05-08 19:55 | PHAR ---
Ozempic inj pen (home supply) seen in pharmacy and returned to RN 3Med unit
[2020-05-08 22:03] LABS: Glucose Point of Care 208 (65-105)
[2020-05-09] VITALS: PULSE 110
[2020-05-09 04:00] VITALS: PULSE 101
[2020-05-09] MEDS: CENTRAL LINE FLUSH 10 ML IV PUSH (05:36)
[2020-05-09 05:55] LABS: Basophils Absolute Auto 0.1 K/mm3 (0.0-0.1); Basophils Percent Auto 0.8 % (0.2-1.2); Eosinophils Absolute Auto 0.6 K/mm3 (0-0.3); Eosinophils Percent Auto 7.3 % (0-4.4); Hematocrit 31.3 % (37.0-47.0); Immature Granulocyte Absolute 0.08 K/mm3 (0.00-0.031); Immature Granulocyte Percent A 0.9 % (0-0.5); Lymphocytes Absolute Auto 0.96 K/mm3 (0.9-3.2); Lymphocytes Percent Auto 11.4 % (18.3-44.2); Mean Corpuscular HGB Conc 31.9 g/dl (32-36); Mean Corpuscular Hemoglobin 27.9 pg (26-34); Mean Corpuscular Volume 87.4 fl (80-100); Mean Platelet Volume 8.6 fl (7.4-10.4); Neutrophils Absolute Auto 5.7 K/mm3 (1.3-6.7); Neutrophils Percent Auto 67.6 % (45.5-73.1); Platelet Count Result 294 k/mm3 (150-375); Red Blood Count 3.58 M/mm3 (4.2-5.4); Red Cell Distribution Width 16.1 % (11.5-14.5); White Blood Count 8.4 K/mm3 (4.5-10.0)
[2020-05-09 06:00] VITALS: BP 134/72; PULSE 100; RESP 16; TEMP 36.6; O2SAT 93
[2020-05-09 06:08] LABS: Ammonia < 9 umol/L (9-30)
[2020-05-09 06:45] LABS: Anion Gap 4 mmol/L (8-16); Blood Urea Nitrogen 8 mg/dL (7-17); Calcium 8.3 mg/dL (8.4-10.2); Carbon Dioxide 29 mmol/L (22-30); Chloride 99 mmol/L (98-107); Estimated CRCL calculation 74 ml/min; Estimated Glomerular Filt Rate > 60; Glucose 191 mg/dL (65-105); Magnesium 1.7 mg/dL (1.6-2.3); Sodium 132 mmol/L (137-145)
[2020-05-09 07:07] LABS: Thyroid Stimulating Hormone Reflex 0.851 uIU/mL (0.465-4.68)
[2020-05-09 07:23] LABS: Folic Acid > 20.0 ng/mL (2.76->20); Vitamin B12 > 1000.0 pg/mL (239-931)
[2020-05-09 07:36] LABS: Glucose Point of Care 171 (65-105)
[2020-05-09 08:00] VITALS: PULSE 113
[2020-05-09] MEDS: ACETAMINOPHEN 325 MG TABLET 650 MG PO (08:28)
[2020-05-09] MEDS: ROSUVASTATIN 10 MG TABLET 20 MG PO (08:29)
[2020-05-09] MEDS: MAGNESIUM OXIDE 400 MG TABLET PO (08:29)
[2020-05-09] MEDS: ASPIRIN 81 MG CHEWABLE TABLET PO (08:29)
[2020-05-09] MEDS: metFORMIN HCL 500 MG TABLET PO (08:29)
[2020-05-09] MEDS: SALINE 0.65% NAS SOLN 44 ML BTL 1 SPRAY NASAL (08:32)
[2020-05-09] MEDS: FENOFIBRATE 160 MG TABLET PO (08:32)
[2020-05-09] MEDS: CHOLECALCIFEROL 400 UNITS TABLET (VIT D) PO (08:32)
[2020-05-09] MEDS: ESCITALOPRAM OXALATE 10 MG TABLET PO (08:32)
[2020-05-09] MEDS: LOSARTAN POTASSIUM 25 MG TABLET PO (08:33)
[2020-05-09] MEDS: ENOXAPARIN 40 MG/0.4 ML SYRINGE SUB-Q (08:33)
[2020-05-09] MEDS: GLIMEPIRIDE 1 MG TABLET PO (08:33)
[2020-05-09 10:01] VITALS: O2SAT 94
--- NOTE | 2020-05-09 10:22 | PM.DS ---
DS: Admitting Diagnosis Admitting Diagnosis Admitting Diagnosis: Altered mental status. DS: Discharge Diagnosis Discharge Diagnosis (1) Confusion: Code(s): R41.0 - Disorientation, unspecified Status: Resolved Assessment and Plan: Date of Admission: 05/07/20 Date of Discharge/DOS: 05/09/20 Ms. Waddell is a 74yo F with stage IV large cell neuroendocrine carcinoma of the lung, diabetes, dyslipidemia, and anxiety who presented to the ED for evaluation of altered mental status. Recent outpatient lab work 05/03 found her to have UTI and she was started on oral ciprofloxacin. She was continued on IV ceftriaxone while hospitalized; urine culture from 05/03 grew group G Streptococcus, she was transitioned to oral augmentin to complete the course at discharge. She recently started undergoing palliative radiation therapy to L4 vertebrae by Dr Frazier. Her home pain regimen was also adjusted, increasing her Fentanyl patch from 50mcg to 100mcg. Her fentanyl was decreased back down to 50mcg while hospitalized. CT brain shows an old punctate right lacunar infarct without acute findings to explain her symptoms. MRI brain normal. Ultimately it is felt that her altered mental status was likely in-part related to the increase of her narcotic medications, as her mental status has now returned back to baseline. Overall, she feels weak. She worked with PT/OT and home health was arranged at discharge. She is hemodynamically stable for discharge 05/09/20 with instructions to follow up with PCP, Dr Abbott, and Dr Frazier. Resolved today. CT brain shows old punctate right lacunar infarct without acute intracranial findings. MRI brain normal. Suspect this may have been related to the recent increase in her fentanyl from 50mcg to 100mcg. We will cut Fentanyl back to 50mcg, She is doing much better with this. 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 Suspect narcotic use/recent increase may have caused her confusion. (3) Large cell neuroendocrine carcinoma: Code(s): C7A.8 - Other malignant neuroendocrine tumors Status: Chronic Assessment and Plan: Follows with Dr Abbott and Dr Frazier for metastatic lung cancer, now recently last week started palliative radiation to L4. (4) Back pain: Qualifiers: Back pain laterality: unspecified Back pain location: back pain in unspecified location Chronicity: chronic Qualified Code(s): M54.9 - Dorsalgia, unspecified; G89.29 - Other chronic pain Code(s): M54.9 - Dorsalgia, unspecified Status: Chronic Assessment and Plan: Mets to bone. Continue home pain regimen but cut Fentanyl back to 50mcg. (5) Essential hypertension: Code(s): I10 - Essential (primary) hypertension Status: Chronic Assessment and Plan: BP stable maintained on her home losartan. (6) Type 2 diabetes mellitus: Qualifiers: Diabetes mellitus complication status: without complication Diabetes mellitus tank terminal gauger insulin use: without tank terminal gauger use Qualified Code(s): E11.9 - Type 2 diabetes mellitus without complications Code(s): E11.9 - Type 2 diabetes mellitus without complications Status: Chronic Assessment and Plan: Blood glucoses elevated and her oral hypoglycemics were resumed along with home Ozempic dose. (7) Hyponatremia: Code(s): E87.1 - Hypo-osmolality and hyponatremia Status: Acute Assessment and Plan: Improved. Monitor outpatient. DS: Summary Time Spent with Patient Time kael
--- NOTE | 2020-05-09 10:38 | WPDCDIQUERY2 ---
CDI Query Clarification Request - In H&P, she was found to have an elevated white blood cell count and a subsequent urinalysis was concerning for UTI. She was started on ciprofloxacin b.i.d. and it is noted that her urine culture dated 05/03 grew out group G Streptococcus documented -Dr Abbott documented, she was started on ciprofloxacin for UTI recently -Pt on Ceftriaxone IV here -Repeat urine culture from 05/07 shows no growth Please clarify if UTI is a current diagnosis for this admission or just recent history with treatment completed prior to admission.
[2020-05-09] MEDS: HEPARIN SOD FLUSH 500 UNITS/5 ML SYRINGE IV PUSH (10:49)
--- NOTE | 2020-05-14 14:50 | PC.NURSE ---
Blood cx are negative
== END 2020-05-09 11:10 | disposition home health service (06) ==
LOC: ANHED 14:45 → ANH3MED 05-08 00:45
PROVIDERS: Physician Assistant; Admitting Provider Internal Medicine; Emergency Provider Emergency Medicine; PCP Internal Medicine; Visit Provider Physician Assistant
DX: R41.0 Disorientation, unspecified (principal); I45.81 Long QT syndrome; N39.0 Urinary tract infection, site not specified; E87.1 Hypo-osmolality and hyponatremia; C7B.8 Other secondary neuroendocrine tumors; Z85.118 Personal history of other malignant neoplasm of bronchus and lung; R09.02 Hypoxemia; E11.9 Type 2 diabetes mellitus without complications; I10 Essential (primary) hypertension; E78.5 Hyperlipidemia, unspecified; F41.9 Anxiety disorder, unspecified; Z79.4 Long term (current) use of insulin; Z79.84 Long term (current) use of oral hypoglycemic drugs; Z96.652 Presence of left artificial knee joint; Z87.891 Personal history of nicotine dependence; Z79.899 Other long term (current) drug therapy
CPT/HCPCS: 36415; 36600; 70450; 70553; 71046; 80048; 80053; 81001; 82140; 82607; 82746; 82805; 83036; 83605; 83735; 84443; 84484; 85025; 87040; 87086; 93005; 96361; 96365; 96367; 96372; 96375; 97161; 97165; 99285; A9270; A9577; G0378; J0696; J1642; J1650; J1815; J3010; J7120

== ENCOUNTER 2020-06-07 10:07 | Outpatient (CLI) | payer MEDICARE, SELFPAY ==
--- NOTE | ~2020-06-07 | CT_ITS ---
EXAMINATION: CT chest abdomen pelvis w con DATE: 06/07/2020 10:35 INDICATION: Malignant neoplasm of lung metastatic to liver. TECHNIQUE: Computed tomography (CT) of the chest, abdomen, and pelvis was performed with 100 mL Omnip aque 350 intravenous contrast. Automated exposure control and iterative reconstruction technique were employed. The dose-length product was 684.01 mGy-cm. COMPARISON: PET CT 03/06/2020, CT chest, abdomen, and pelvis 02/01/2020 FINDINGS: CHEST CT: There is moderate emphysema. There are changes of left lower lobectomy. There is mild atelectasis marc aterally. Calcified pulmonary nodules and calcified hilar lymph nodes are consistent with old granulo matous disease. No pleural effusion. There is marked elevation of right hemidiaphragm. There is media stinal lymphadenopathy. The heart size is normal. There are coronary artery calcifications. No perica rdial effusion. There is a small sliding hiatal hernia. There is a right internal jugular port with t ip in superior vena cava. There is moderate thoracic spondylosis. There are hemangiomas in T7, T10, a nd T11 vertebral bodies. There is a sclerotic lesion in T9 spinous process. There is a sclerotic lesi on in left scapula. There is a sclerotic lesion in right seventh rib. There are sclerotic lesions in left fifth and sixth ribs. There is ununited fracture of left eighth rib. ABDOMEN/PELVIS CT: There are 2 masses in the liver with the larger measuring 5.6 x 4.7 cm, increased from 2.6 cm on 01/31. There are changes of cholecystectomy. Calcifications in the spleen are consistent with old gra nulomatous disease. The pancreas and adrenal glands are normal. There are cysts in the kidneys measur ing up to 17 mm on the right. There is cortical thinning of the kidneys. There is a 3 mm stone in rig ht kidney. There is diverticulosis of the colon without evidence of diverticulitis. There are no dila alicia loops of bowel. The appendix is normal. There is chronic mild periportal lymphadenopathy. There i s no free intraperitoneal fluid. There is severe lumbar spondylosis. There is a sclerotic lesion in L 4 vertebral body with pathologic fracture. There is a sclerotic lesion in S1. IMPRESSION: 1. Liver masses and bone lesions with worsening from 02/01/2020, consistent with metastatic disease. I mproved mediastinal lymphadenopathy, consistent with metastatic disease. Reviewed, dictated and finalized at location A. IMPRESSION: 1. Liver masses and bone lesions with worsening from 02/01/2020, consistent with metastatic disease. Improved mediastinal lymphadenopathy, consistent with meta static disease.
== END 2020-06-07 10:08 | disposition home or self-care (01) ==
PROVIDERS: PCP Internal Medicine; Visit Provider Internal Medicine Hematology & Oncology
DX: C78.7 Secondary malignant neoplasm of liver and intrahepatic bile duct (principal)
CPT/HCPCS: 71260; 74177; Q9967

== ENCOUNTER 2020-08-06 12:15 | Observation (INO) | payer MEDICARE, SELFPAY ==
[2020-08-06] VITALS (8 sets, daily range): BP systolic 117–136; BP diastolic 65–83; PULSE 98–116; RESP 17–20; TEMP 36–36.6; O2SAT 92–97; BMI 21.9
--- NOTE | ~2020-08-06 | MR_ITS ---
EXAMINATION: MR brain/brain stem wo/w con DATE: 08/07/2020 15:20 INDICATION: Altered mental status. Metastatic disease. TECHNIQUE: Magnetic resonance imaging (MRI) of the brain and brainstem was performed without and with 10 mL MultiHance intravenous contrast. Sequences included sagittal and axial T1-weighted FSE, axial diffusion-weighted FS EPI, axial T2*-weighted GRE, axial T2-weighted FLAIR Propeller, and axial T2-we ighted Propeller. Postcontrast sequences included axial, sagittal, and coronal T1-weighted FSE. Appar ent diffusion coefficient (ADC) maps were created. COMPARISON: Brain MRI 05/08/2020, head CT 05/07/2020 FINDINGS: Motion artifact is noted. There are scattered areas of nonspecific increased T2-weighted si gnal intensity in the cerebral white matter and edith and right lentiform nucleus. There is no intracr anial hemorrhage, acute infarction, or abnormal intracranial mass lesion. The ventricles are normal i n size. The paranasal sinuses are clear. The orbits are normal. There is a small right mastoid effusi on. IMPRESSION: 1. Stable mild nonspecific cerebral white matter disease and disease of the edith and right lentiform nucleus, which likely represents chronic small vessel ischemic disease. Reviewed, dictated and finalized at location A. AND SCENERY MAKER IMPRESSION: 1. Stable mild nonspecific cerebral white matter disease and disease of the josé manuel s and right lentiform nucleus, which likely represents chronic small vessel isc hemic disease.
--- NOTE | ~2020-08-06 | CT_ITS ---
EXAMINATION: CT abdomen pelvis wo con EXAM DATE: 08/07/2020 13:14 INDICATION: Abdominal pain. Liver masses, bone lesions, lymphadenopathy. TECHNIQUE: Spiral CT of the abdomen and pelvis was performed following intravenous injection of 100 m L Omnipaque 350. Axial, coronal and sagittal images were reviewed. The dose-length product (DLP) fo r this examination was 695.74 mGy-cm. The exposure was tailored according to patient size (auto mA e xposure control), and iterative reconstruction (ASIR) was used as additional dose reduction technique . Comparison is made to prior examination from 06/07/2020. FINDINGS: Previously confirmed liver masses less well-visualized on this noncontrast study but have i ncreased in size and number compared to prior study, suspect that the largest in the right measures a bout 7.6 cm versus 5.8 on prior study. Spleen, adrenal glands, pancreas are unremarkable. Gallbladde r is unremarkable. No biliary obstruction. There is a 3 mm right inferior calyceal stone, 2 mm righ t superior calyceal stone. No hydronephrosis. The uterus is unremarkable. The bladder is collapsed with [place] catheter balloon anchor inside. There is no retroperitoneal or pelvic lymphadenopathy. There is moderate scattered arteriosclerotic disease. The appendix is normal. There is extensive colonic diverticulosis. There is no adjacent inflammatory change to suggest diverticulitis. Rectal vault is distended to 8 cm. The stomach and small bowel a re unremarkable. There is expected amount of colonic stool. No free intraperitoneal gas. Heart i s normal in size, with mediastinum shifted to the left indicating left-sided volume loss. No basilar consolidation. Scattered osteoblastic disease again noted. IMPRESSION: 1. Fecal impaction, constipation. 2. Progression in size and number of liver metastatic lesions. 3. Osteoblastic disease unchanged. 4. Small right nephrolithiasis. Reviewed, dictated and finalized at location B. Y PULLER
--- NOTE | ~2020-08-06 | CT_ITS ---
EXAMINATION: CT brain wo con EXAM DATE: 08/06/2020 15:37 INDICATION: Altered mental status. TECHNIQUE: Spiral CT of the head was performed without contrast. Axial, coronal and sagittal images were reviewed. The dose-length product (DLP) for this examination was 605.33 mGy-cm. The exposure w as tailored according to patient size, and iterative reconstruction (ASIR) was used as additional dos e reduction technique. Comparison is made to prior examination from 05/07/2020. FINDINGS: There is no acute intraparenchymal hemorrhage. No evidence of intraparenchymal brain mass lesion. No evidence of acute infarction. Please note that initial head CT has limited sensitivity f or small or acute infarctions. Punctate old right basal ganglia lacunar infarction. There is mild p eriventricular and subcortical hypodensity, nonspecific but probably related to small vessel ischemic disease. There is moderate prominence of the sulci and ventricles related to cerebral atrophy. T here is intracranial carotid arteriosclerosis. There are no extra-axial collections. There is no ma ss effect or midline shift. The orbits are unremarkable. Soft tissue is unremarkable. The visualiz ed sinuses and mastoid air cells are well aerated. IMPRESSION: 1. No acute intracranial findings. 2. Chronic age related findings. 3. Punctate old right basal ganglia lacunar infarction. Reviewed, dictated and finalized at location B. LER
--- NOTE | ~2020-08-06 | XR_ITS ---
EXAMINATION: XR chest 2V DATE: 08/06/2020 13:18 INDICATION: Transient alteration of awareness TECHNIQUE: PA and lateral views of the chest are obtained. COMPARISON: 05/07/2020 FINDINGS: A right internal jugular Port-A-Cath ends with its tip in the distal superior vena cava. Th e lungs are free of acute opacities. There is no pleural effusion or pneumothorax. There is moderate thoracic spondylosis. IMPRESSION: 1. No acute cardiopulmonary abnormality. Reviewed, dictated and finalized at location A. 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
--- NOTE | 2020-08-06 12:40 | ECG_ITS ---
Measurements Intervals [place] Rate: 113 P: 65 [place]: 110 QRS: 25 QRSD: 94 T: 54 QT: 305 QTc: 418 Interpretive Statements SINUS TACHYCARDIA WITH SHORT [place] INTERVAL LOW QRS VOLTAGE IN PRECORDIAL LEADS BORDERLINE R WAVE PROGRESSION, ANTERIOR LEADS CONSIDER INFERIOR INFARCT, AGE INDETERMINATE BORDERLINE T WAVE ABNORMALITY- ANT/HIGH LAT LEADS BASELINE ARTIFACT- AVR, AVL ABNORMAL ECG Electronically Signed On 08-06-2020 15:22:33 GEOPHYSICAL COMPUTER by Sandoval Lutz D.O.
[2020-08-06 12:52] LABS: Glucose Point of Care 294 (65-105)
[2020-08-06 12:54] LABS: Basophils Percent Auto 0.4 % (0.2-1.2); Eosinophils Percent Auto 0.1 % (0-4.4); Hematocrit 33.6 % (37.0-47.0); Hemoglobin 10.9 g/dL (12.0-15.0); Immature Granulocyte Absolute 0.22 K/mm3 (0.00-0.031); Immature Granulocyte Percent A 2.3 % (0-0.5); Lymphocytes Absolute Auto 0.67 K/mm3 (0.9-3.2); Mean Corpuscular HGB Conc 32.4 g/dl (32-36); Mean Corpuscular Hemoglobin 28.2 pg (26-34); Mean Platelet Volume 8.7 fl (7.4-10.4); Monocytes Absolute Auto 1.3 K/mm3 (0.1-0.6); Monocytes Percent Auto 13.6 % (2.6-8.5); Neutrophils Absolute Auto 7.4 K/mm3 (1.3-6.7); Neutrophils Percent Auto 76.6 % (45.5-73.1); Platelet Count Result 384 k/mm3 (150-375); Red Blood Count 3.86 M/mm3 (4.2-5.4); Red Cell Distribution Width 18.2 % (11.5-14.5); White Blood Count 9.6 K/mm3 (4.5-10.0)
[2020-08-06 13:07] LABS: Alanine Aminotransferase 25 U/L (4-35); Albumin Level 3.7 g/dL (3.5-5.1); Alkaline Phosphatase 487 U/L (38-126); Anion Gap 11 mmol/L (8-16); Aspartate Amino Transferase 82 U/L (14-36); Bilirubin,Total 0.6 mg/dL (0.2-1.3); Blood Urea Nitrogen 16 mg/dL (7-17); Calcium 8.6 mg/dL (8.4-10.2); Carbon Dioxide 24 mmol/L (22-30); Chloride 90 mmol/L (98-107); Estimated CRCL calculation 82 ml/min; Estimated Glomerular Filt Rate > 60; Glucose 297 mg/dL (65-105); Potassium 4.3 mmol/L (3.4-5.0); Sodium 125 mmol/L (137-145)
[2020-08-06] MEDS: SODIUM CHLORIDE 0.9% IV 1,000 ML 999 ML IV CONT (14:55)
[2020-08-06] MEDS: LORazepam INJ (*CRX) 2 MG/ML VIAL 0.5 MG IV PUSH (15:00)
[2020-08-06 16:02] LABS: Add Urine Microscopic? YES; Appearance Urine Clear (Clear); Bacteria Urine Trace /hpf; Bilirubin Urine Negative (Negative); Blood Urine Negative (Negative); Color Urine Yellow (Yellow); Glucose Urine UA 2+ mg/dL (Negative); Ketones Urine Trace mg/dL (Negative); Leukocyte Esterase Ur Negative LEU/UL (Negative); Mucus Urine Rare /lpf; Nitrate Urine Negative (Negative); Protein Urine 2+ mg/dL (Negative); RBC Urine 0-2 /hpf (0-2); Specific Grav Ur 1.028 (1.001-1.035); Squamous Epithelial Cell Urine Few /hpf (Few); WBC Urine 0-3 /hpf
--- NOTE | 2020-08-06 16:39 | ED.AMS ---
HPI - Altered Mental Status General Chief Complaint: Altered Mental Status Stated Complaint: ALTERED LOC, HIGH BLOOD SUGAR Time Seen by Provider: 08/06/20 14:18 History of Present Illness HPI narrative: Patient is a 74-year-old female with history of metastatic neuroendocrine lung cancer who presents to the ER with altered mental status. Going on for the last day. Patient has been feeling more weak over the last week. Her blood sugars have been running in the 600s and she missed her most recent chemotherapy due to a low hemoglobin. No known sick contacts. She is not having fevers or chills or sweats. She has had polydipsia but appears very dry. She is followed by Dr. Abbott. She has metastases to her spine and liver and received palliative radiation. Patient has had recent increase in her fentanyl patch due to her chronic pain. Related Data Home Medications Medication Instructions Recorded Confirmed fenofibrate 150 mg PO DAILY 11/02/19 08/02/20 rosuvastatin [Crestor] 20 mg PO DAILY 11/02/19 08/02/20 Ozempic 0.25 mg SUBCUT WEEKLY 05/07/20 08/02/20 aspirin 81 mg PO DAILY 05/07/20 08/02/20 cholecalciferol (vitamin D3) 400 unit PO DAILY 05/07/20 08/02/20 [Vitamin D3] fenofibrate nanocrystallized 145 mg PO DAILY 05/07/20 08/02/20 magnesium oxide 400 mg PO DAILY 05/07/20 08/02/20 metformin 500 mg PO BID 05/07/20 08/02/20 morphine [MS Contin] 15 mg PO Q12H 05/07/20 08/02/20 ondansetron 8 mg PO Q8H PRN 05/07/20 08/02/20 oxycodone-acetaminophen 1 tablet PO Q4-6H 05/07/20 08/02/20 prochlorperazine maleate 10 mg PO Q6H PRN 05/07/20 08/02/20 bupropion HCl [Wellbutrin SR] 150 mg PO QAM 06/21/20 08/02/20 carbonyl iron-calcium 1 tablet PO DAILY 06/21/20 08/02/20 escitalopram oxalate [Lexapro] 5 mg PO DAILY 06/21/20 08/02/20 omega [id number] oil [[place] 3 1 cap PO DAILY 06/21/20 08/02/20 Fish Oil] fentanyl 1 patch TRANSDERMAL Q72H 07/19/20 08/02/20 Allergies Allergy/AdvReac Type Severity Reaction Status Date / Time lisinopril AdvReac Severe COUGH Verified 07/09/20 10:08 Review of Systems Review of Systems: ROS unobtainable: Yes unobtainable due to mental status PMFSH Past Medical History Medical History (Updated 08/06/20 @ 17:05 by Momo Dunaway MD) Dyslipidemia Essential hypertension History of colon polyps Large cell neuroendocrine carcinoma Initially diagnosed with stage IIB large cell neuroendocrine carcinoma arising in the left lower lobe with metastatic disease to the lymph nodes, status post lobectomy 10/21/2018 and adjuvant chemotherapy. PET scan in October 2019 demonstrated metastatic disease in the liver and now bony mets to the L4 vertebra for which she is receiving palliative radiation. Osteoarthritis Type 2 diabetes mellitus Surgical History Surgical History (Updated 05/08/20 @ 17:39 by Casey Abbott MD) History of cholecystectomy History of left knee replacement History of lobectomy of lung (~10/21/18) Family History Family History Other Cerebrovascular accident Diabetes mellitus Family history of cardiovascular disease Family history of chronic obstructive pulmonary disease Family history of malignant neoplasm Hypertension Social History Social History (Updated 05/08/20 @ 00:59 by Bharti Esquviel PA-C) Social History: The patient lives in [place] with her and their daughter, who suffered a traumatic brain injury at the age of 25. They have 2 other children. 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 She smoked 2 and sometimes even 3 packs of cigarettes per day for 37 years and apparently quit in 1994. She denies alcohol and illicit substance use. She designates her , Laurent, as her surrogate decision maker. She is not certain if she would want to be resuscitated, but for now will be a full code. Smoking packs per day: 2 Smoking cigarettes per day: 40.0 Years smoked: 37 Smoking pack-y
--- NOTE | 2020-08-06 18:47 | ADMGEN ---
This patient, Magdalena Waddell, was admitted to 2 Medical Room 256-01. Patient/family oriented to hospital policies and general routines including ID bracelet, bed and alarms, visiting hours, pain management, procedures, bathroom and other care routines, personal items, smoking policy, room service/diet, and visiting hours. Information on how to activate the Rapid Response Team has been discussed. Patient/Family are encouraged to report perceived risks to care and to ask questions if they do not understand what they are told or what they should do.
--- NOTE | 2020-08-06 19:02 | PC.NURSE ---
TO BRING UP HOME MED LIST COREY
[2020-08-06] MEDS: SODIUM CHLORIDE 0.9% IV 1,000 ML 100 ML IV CONT (19:06)
[2020-08-06 21:48] LABS: Glucose Point of Care 270 (65-105)
[2020-08-06] MEDS: HYDROcodone/acetaminophen (*CRX) 5-325 MG TABLET 1 TAB PO (22:06)
[2020-08-07] VITALS (8 sets, daily range): BP systolic 121–151; BP diastolic 58–82; PULSE 100–121; RESP 18–22; TEMP 36.3–37.2; O2SAT 92–98
--- NOTE | 2020-08-07 00:32 | PM.IMHP ---
H&P: HPI History of Present Illness Date/Time: 08/07/20 00:32 Chief Complaint: altered mental status. 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 The patient is well known to our Hospitalist service due to previous hospitalizations and was actually recently admitted a few months ago with similar complaint of altered mental status and at that time it was thought to be secondary to narcotic use. Today she states that her family was worried about her as they thought she was lethargic. She has had increased weakness and missed her last session of chemotherapy. She is followed by Dr. Abbott. She has metastases to her spine and liver and received palliative radiation. Patient has had recent increase in her fentanyl patch due to her chronic pain. She was evluated in the ER yesterday and routine labs demonstrated moderate hyponatremia of 125 mOsm/kg which is not far from her normal serum sodium levels of 128-135. Brain CT was negative for any acute pathology. The patient was treated with IV fluids and admitted to the hospital for further care. On my encounter with the patient tonight she is alert, awake and in no acute distress. She has no complaints. She denies any fevers, cough, shortness of breath, chest pain. abdominal pain, dysuria, hematuria, diarrhea, or rectal bleeding. Review of Systems Review of Systems: All systems reviewed & are unremarkable except as noted in HPI and below PMFSH Past Medical History Medical History Dyslipidemia Essential hypertension History of colon polyps Large cell neuroendocrine carcinoma Initially diagnosed with stage IIB large cell neuroendocrine carcinoma arising in the left lower lobe with metastatic disease to the lymph nodes, status post lobectomy 10/21/2018 and adjuvant chemotherapy. PET scan in October 2019 demonstrated metastatic disease in the liver and now bony mets to the L4 vertebra for which she is receiving palliative radiation. Osteoarthritis Type 2 diabetes mellitus Surgical History Surgical History History of cholecystectomy History of left knee replacement History of lobectomy of lung (~10/21/18) Family History Family History Other Cerebrovascular accident Diabetes mellitus Family history of cardiovascular disease Family history of chronic obstructive pulmonary disease Family history of malignant neoplasm Hypertension Social History Social History Social History: The patient lives in [place] with her and their daughter, who suffered a traumatic brain injury at the age of 25. They have 2 other children. 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 She smoked 2 and sometimes even 3 packs of cigarettes per day for 37 years and apparently quit in 1994. She denies alcohol and illicit substance use. She designates her , Laurent, as her surrogate decision maker. She is not certain if she would want to be resuscitated, but for now will be a full code. Smoking packs per day: 2 Smoking cigarettes per day: 40.0 Years smoked: 37 Smoking pack-years: 74.00 Smoking status: Former smoker Tobacco type: cigarettes Second hand tobacco smoke exposure: Yes Smoking end date: 02/16/95 Alcohol intake: never Substance use: never Substance use type: does not use Gender identity (if verbalized by the patient): Female Sexual Orientation (if Verbalized by the Patient): Straight or Heterosexual Spiritual care concerns: No Meds Home Medications and Allergies Home Medications Medication Instructions Recorded Confirmed Type bear
[2020-08-07] MEDS: LORazepam (*CRX) 0.5 MG TABLET PO (03:38)
[2020-08-07] MEDS: CENTRAL LINE FLUSH 10 ML IV PUSH ×3 (05:41→21:23)
[2020-08-07] MEDS: SODIUM CHLORIDE 0.9% IV 1,000 ML 100 ML IV CONT (07:21)
[2020-08-07 08:14] LABS: Glucose Point of Care 278 (65-105)
[2020-08-07 08:20] LABS: Glucose Point of Care 268 (65-105)
[2020-08-07] MEDS: HYDROmorphone HCL INJ (*CRX) 1 MG/ML SYR IV PUSH (08:42)
[2020-08-07] MEDS: CHOLECALCIFEROL 400 UNITS TABLET (VIT D) PO (08:45)
[2020-08-07] MEDS: ROSUVASTATIN 10 MG TABLET 20 MG PO (08:45)
[2020-08-07] MEDS: metFORMIN HCL 500 MG TABLET PO (08:45)
[2020-08-07] MEDS: MULTIVITAMINS /C LUTEIN (CENTRUM SILVER) TABLET *BKC 1 TAB PO (08:45)
[2020-08-07] MEDS: FENOFIBRATE NANOCRYSTALLIZED 145 MG TABLET PO (08:45)
[2020-08-07] MEDS: MAGNESIUM OXIDE 400 MG TABLET PO (08:46)
[2020-08-07] MEDS: ASPIRIN 81 MG CHEWABLE TABLET PO (08:46)
[2020-08-07] MEDS: INSULIN ASPART (*BKC) 100 UNITS/ML SUB-Q ×2 (08:51→17:20)
[2020-08-07 10:18] LABS: Anion Gap 18 mmol/L (8-16); Blood Urea Nitrogen 6 mg/dL (7-17); Calcium 7.7 mg/dL (8.4-10.2); Carbon Dioxide 16 mmol/L (22-30); Chloride 98 mmol/L (98-107); Estimated CRCL calculation 78 ml/min; Estimated Glomerular Filt Rate > 60; Glucose 249 mg/dL (65-105); Sodium 132 mmol/L (137-145)
[2020-08-07 11:22] LABS: Glucose Point of Care 194 (65-105)
--- NOTE | 2020-08-07 12:09 | PM.IMPN ---
Progress Note: A&P Assessment and Plan (1) Altered mental status: Qualifiers: Altered mental status type: unspecified Qualified Code(s): R41.82 - Altered mental status, unspecified Code(s): R41.82 - Altered mental status, unspecified Status: Resolved Assessment and Plan: Patient's altered mental status appears improved although she is still tired. -UA is not suspicious for UTI -WBC normal -could be due to narcotics since she just had an increase in her fentyl patch--will decrease her home dose for now -Could be due to advance cancer--will obtain MRI of the brain -Anion gap noted on todays labs. Will draw abg -will check CK, lactic, betahydroxybuterate -Sodium about at baseline, unlikely the cause (2) Acute hyponatremia: Code(s): E87.1 - Hypo-osmolality and hyponatremia Status: Acute Assessment and Plan: Likely due to cancer -Repeat is 132 -Will stop fluids -Recheck at 1330 (3) Antineoplastic chemotherapy induced anemia: Code(s): D64.81 - Anemia due to antineoplastic chemotherapy; T45.1X5A - Adverse effect of antineoplastic and immunosuppressive drugs, initial encounter Status: Acute Assessment and Plan: Chronic -hgb stable at 10.9 today (4) Large cell neuroendocrine carcinoma: Code(s): C7A.8 - Other malignant neuroendocrine tumors Status: Chronic Assessment and Plan: Dr. 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 Continue fluids (6) Hyperlipidemia: Qualifiers: Hyperlipidemia type: unspecified Qualified Code(s): E78.5 - Hyperlipidemia, unspecified Code(s): E78.5 - Hyperlipidemia, unspecified Status: Chronic Assessment and Plan: chronic (7) High anion gap metabolic acidosis: Code(s): E87.2 - Acidosis Status: Acute Assessment and Plan: -See above -Continue IV fluids, recheck later today -check abg Additional Plan Time Spent With Patient Time with patient: 25 - 35 minutes Subjective Date/time seen: 08/07/20 12:09 Interval history: Pt is a 74-year-old female here with advanced cancer and altered mental status. Patient was seen today and although is tired, she answers all my questions appropriately. She states she is not any pain. She denies on my questions including chest pain, nausea, vomiting, fevers, chills, abdominal pain, or leg swelling. Review of Systems Review of Systems: All systems reviewed & are unremarkable except as noted in HPI and below Exam Narrative: Exam Narrative: General: Chronically sick patient resting in bed in no acute distress HEENT: normocephalic Neck: supple Neuro: Alert and oriented x 4. She is able to answer all my questions and follow all commands. Cranial nerves 2-12 intact. Equal strength upper lower extremities 5/5 CV:RRR on exam Resp:CTA Abd: Soft, non distended. No pain to palpation. Positive bowel sounds Extremities: No swelling, erythema, or pain to palpation. Objective Data Vital Signs Vital Signs: Vital Signs - 24 hr 08/06/20 12:35 08/06/20 14:24 08/06/20 15:52 Temperature 96.8 F L Pulse Rate 110 H 113 H 98 Respiratory Rate 20 17 18 Blood Pressure 135/71 136/83 127/75 Pulse Oximetry 93 97 94 08/06/20 16:34 08/06/20 17:23 08/06/20 18:30 Temperature Pulse Rate 113 H 116 H 116 H Respiratory Rate 18 18 20 Blood Pressure 117/72 123/65 120/71 Pulse Oximetry 92 92 96 08/06/20 20:00 08/06/20 22:00 08/07/20 00:00 Temperature 97.8 F 97.8 F 97.8 F
[2020-08-07] MEDS: KCL 20 MEQ/SW 100 ML 100 ML 50 MEQ IVPB (12:37)
[2020-08-07 12:45] LABS: Creatine Kinase 202 U/L (30-135); Lactic Acid Reflex 1.2 mmol/L (0.7-2.1)
[2020-08-07 12:50] LABS: Beta-Hydroxybutyrate/Acetoacetate 3.35 mmol/L (0.02-0.27)
[2020-08-07] MEDS: HYDROcodone/acetaminophen (*CRX) 5-325 MG TABLET 1 TAB PO ×2 (13:33→22:25)
[2020-08-07 13:34] LABS: Alveolar/Arterial O2 Gradient 41.7 mmHg; Base Excess ABG -4.9 mEq/l (+/-2.0); Carboxyhemoglobin 0.3 % THb (0-2.0); Fractional Inspired Oxygen 21 %; HCO3 ABG 17.9 mEq/l (22.0-26.0); Methemoglobin ABG 0.1 %THb (0-1.5); Oxygen Content ABG 15.3 %vol (16.0-22.0); Oxygen Saturation ABG 95.9 % (95.0-100.0); Oxyhemoglobin 94.3 % THb (90.0-100.0); PCO2 ABG 26.9 mmHg (35.0-45.0); PO2 ABG 75.8 mmHg (80.0-100.0); PO2 FiO2 Ratio Arterial Blood 3.61 %; Reduced Hemoglobin 5.3 %THb (0-5.0); Total Hemoglobin 11.5 g/dL (12.0-18.0); pH ABG 7.442 (7.350-7.450)
[2020-08-07 13:36] LABS: Device ROOM AIR; Site Drawn LEFT BRACHIAL
[2020-08-07] MEDS: LACTATED RINGERS 1,000 ML 100 ML IV CONT (14:37)
[2020-08-07] MEDS: fentaNYL (*CRX) 50 MCG PATCH TRANSDERM (15:33)
[2020-08-07] MEDS: BISACODYL 10 MG SUPPOSITORY RECTAL (15:34)
[2020-08-07 16:06] LABS: Salicylate < 1.0 mg/dL (2-20)
[2020-08-07 16:12] LABS: Blood Urea Nitrogen 9 mg/dL (7-17); Carbon Dioxide 20 mmol/L (22-30); Estimated CRCL calculation 99 ml/min; Estimated Glomerular Filt Rate > 60; Glucose 253 mg/dL (65-105); Potassium 4.2 mmol/L (3.4-5.0); Sodium 133 mmol/L (137-145)
[2020-08-07 16:14] LABS: Anion Gap 15 mmol/L (8-16); Chloride 98 mmol/L (98-107)
[2020-08-07 16:45] LABS: Beta-Hydroxybutyrate/Acetoacetate 6.14 mmol/L (0.02-0.27)
[2020-08-07 17:04] LABS: Glucose Point of Care 266 (65-105)
[2020-08-07] MEDS: SODIUM BICARBONATE TAB 650 MG TABLET PO (17:19)
[2020-08-07 20:34] LABS: Glucose Point of Care 167 (65-105)
[2020-08-08] VITALS (7 sets, daily range): BP systolic 106–154; BP diastolic 69–82; PULSE 100–111; RESP 16–22; TEMP 36.1–36.8; O2SAT 94–98
[2020-08-08] MEDS: LACTATED RINGERS 1,000 ML 100 ML IV CONT ×2 (01:38→17:55)
[2020-08-08] MEDS: HYDROcodone/acetaminophen (*CRX) 5-325 MG TABLET 1 TAB PO (04:39)
[2020-08-08] MEDS: CENTRAL LINE FLUSH 10 ML IV PUSH ×2 (05:32→13:50)
[2020-08-08 05:59] LABS: Anion Gap 17 mmol/L (8-16); Blood Urea Nitrogen 9 mg/dL (7-17); Calcium 7.7 mg/dL (8.4-10.2); Carbon Dioxide 19 mmol/L (22-30); Chloride 98 mmol/L (98-107); Estimated CRCL calculation 99 ml/min; Estimated Glomerular Filt Rate > 60; Glucose 288 mg/dL (65-105); Potassium 3.4 mmol/L (3.4-5.0); Sodium 134 mmol/L (137-145)
[2020-08-08 06:03] LABS: Hematocrit 32.3 % (37.0-47.0); Hemoglobin 10.3 g/dL (12.0-15.0); Mean Corpuscular HGB Conc 31.9 g/dl (32-36); Mean Corpuscular Volume 87.8 fl (80-100); Mean Platelet Volume 8.9 fl (7.4-10.4); Platelet Count Result 389 k/mm3 (150-375); Red Blood Count 3.68 M/mm3 (4.2-5.4); Red Cell Distribution Width 18.1 % (11.5-14.5); White Blood Count 11.2 K/mm3 (4.5-10.0)
[2020-08-08 07:29] LABS: Beta-Hydroxybutyrate/Acetoacetate 7.18 mmol/L (0.02-0.27)
[2020-08-08 08:02] LABS: Glucose Point of Care 286 (65-105)
[2020-08-08] MEDS: ASPIRIN 81 MG CHEWABLE TABLET PO (09:04)
[2020-08-08] MEDS: SODIUM BICARBONATE TAB 650 MG TABLET PO (09:05)
[2020-08-08] MEDS: ROSUVASTATIN 10 MG TABLET 20 MG PO (09:05)
[2020-08-08] MEDS: CHOLECALCIFEROL 400 UNITS TABLET (VIT D) PO (09:05)
[2020-08-08] MEDS: FENOFIBRATE NANOCRYSTALLIZED 145 MG TABLET PO (09:05)
[2020-08-08] MEDS: MULTIVITAMINS /C LUTEIN (CENTRUM SILVER) TABLET *BKC 1 TAB PO (09:05)
[2020-08-08] MEDS: MAGNESIUM OXIDE 400 MG TABLET PO (09:05)
[2020-08-08] MEDS: BISACODYL 10 MG SUPPOSITORY RECTAL (09:06)
[2020-08-08] MEDS: INSULIN ASPART (*BKC) 100 UNITS/ML SUB-Q ×3 (09:08→17:56)
[2020-08-08] MEDS: LACTATED RINGERS 1,000 ML 125 ML IV CONT (09:20)
[2020-08-08 11:56] LABS: Anion Gap 14 mmol/L (8-16); Blood Urea Nitrogen 10 mg/dL (7-17); Carbon Dioxide 22 mmol/L (22-30); Chloride 101 mmol/L (98-107); Estimated CRCL calculation 99 ml/min; Estimated Glomerular Filt Rate > 60; Glucose 257 mg/dL (65-105); Potassium 3.4 mmol/L (3.4-5.0); Sodium 137 mmol/L (137-145)
--- NOTE | 2020-08-08 13:18 | PM.IMPN ---
Progress Note: A&P Assessment and Plan (1) Altered mental status: Qualifiers: Altered mental status type: unspecified Qualified Code(s): R41.82 - Altered mental status, unspecified Code(s): R41.82 - Altered mental status, unspecified Status: Resolved Assessment and Plan: Patient's altered mental status appears improved -likely due to narcotic use. Narcotics have been decreased and she is currently without pain and appears to be alert and oriented x4 -UA is not suspicious for UTI -WBC a little more elevated today but no infection suspected. Will remove catheter -Could be due to advance cancer--brain MRI negative for Mets -Anion gap noted on todays labs earlier, see below -Likely discharge home tomorrow if pt continues to improve (2) Acute hyponatremia: Code(s): E87.1 - Hypo-osmolality and hyponatremia Status: Acute Assessment and Plan: Normal today at 137 -Pt is now eating and drinking more (3) Antineoplastic chemotherapy induced anemia: Code(s): D64.81 - Anemia due to antineoplastic chemotherapy; T45.1X5A - Adverse effect of antineoplastic and immunosuppressive drugs, initial encounter Status: Chronic Assessment and Plan: Chronic -hgb stable at 11.2 (4) Large cell neuroendocrine carcinoma: Code(s): C7A.8 - Other malignant neuroendocrine tumors Status: Chronic Assessment and Plan: See's Dr. Abbott -Pt understands she is terminal but does not want to proceed with hospice or change to DNR at this time -See subjective (5) Type 2 diabetes mellitus: Qualifiers: Diabetes mellitus assisted insulin use: without intermediate teacher use Diabetes mellitus complication status: without complication Qualified Code(s): E11.9 - Type 2 diabetes mellitus without complications Code(s): E11.9 - Type 2 diabetes mellitus without complications Status: Chronic Assessment and Plan: Last glucose 257 -Metformin stopped due to acidosis -Will start januvia -Continue home ozempic -A1c 8/0 -Monitor accuchecks (6) High anion gap metabolic acidosis: Code(s): E87.2 - Acidosis Status: Acute Assessment and Plan: Noted yesterday and today -Improving with IV fluids -pH was normal yesterday -Betahydroxybuterate has been high for unclear reasons. I do not suspect DKA but will continue fluids and DM medications. -Could be due to malnutrition, pt has an increased appetitie -ck midly high -salicylate level normal -I do not suspect other toxins -pt on metformin, this has been stopped -gap now 14 and sodium WNL as well as Co2 normal at 22 Additional Plan Subjective Date/time seen: 08/08/20 13:18 Interval history: Pt is a 74-year-old female here with advanced cancer and altered mental status. Patient was seen today and appeared to be back at baseline. She states she has no pain and she feels a little groggy but overall feeling better. She is not eating much but finally has an appetite. Pt denies nausea, vomiting, fevers, chills, constipation, diarrhea, chest pain, sob, or abdominal pain. She had a couple bowel movements today and states she has problems with constipation at times. We had a long talk about her prognosis and her wishes. She may look in the hospice in the future but states that she has a lot of good days and would like to be resuscitated if able so she can continue to have good days. If she were in a position where she was having more bad days, she would consider changing her code status. Exam Narrative: Exam Narrative: General: Chronically sick patient resting in the chair in no acute distress HEENT: normocephalic Neck: supple Neuro: Alert and oriented x 4. She is able to answer all my questions and follow all commands. Cranial nerves 2-12 intact. Equal strength upper lower extremities 5/5 CV:RRR on exam Resp:CTA Abd: Soft, non distended. No pain to palpation. Pos
[2020-08-08 18:31] LABS: Glucose Point of Care 265 (65-105)
[2020-08-08 20:45] LABS: Glucose Point of Care 213 (65-105)
[2020-08-08] MEDS: LORazepam (*CRX) 0.5 MG TABLET PO (21:07)
[2020-08-09] VITALS: BP 116/73; PULSE 87; RESP 20; TEMP 36.2; O2SAT 92
[2020-08-09] MEDS: CENTRAL LINE FLUSH 10 ML IV PUSH ×3 (04:56→15:41)
[2020-08-09] MEDS: LACTATED RINGERS 1,000 ML 100 ML IV CONT (04:59)
[2020-08-09] MEDS: LORazepam (*CRX) 0.5 MG TABLET PO (05:02)
[2020-08-09 05:23] LABS: Hematocrit 31.3 % (37.0-47.0); Hemoglobin 10.1 g/dL (12.0-15.0); Mean Corpuscular HGB Conc 32.3 g/dl (32-36); Mean Corpuscular Hemoglobin 28.5 pg (26-34); Mean Corpuscular Volume 88.2 fl (80-100); Mean Platelet Volume 9.1 fl (7.4-10.4); Platelet Count Result 356 k/mm3 (150-375); Red Blood Count 3.55 M/mm3 (4.2-5.4); Red Cell Distribution Width 18.4 % (11.5-14.5); White Blood Count 10.1 K/mm3 (4.5-10.0)
[2020-08-09 06:00] VITALS: BP 147/81; PULSE 100; RESP 18; TEMP 36.3; O2SAT 99
[2020-08-09 07:29] LABS: Glucose Point of Care 281 (65-105)
[2020-08-09] MEDS: INSULIN ASPART (*BKC) 100 UNITS/ML SUB-Q ×2 (07:31→12:14)
[2020-08-09] MEDS: ROSUVASTATIN 10 MG TABLET 20 MG PO (07:32)
[2020-08-09] MEDS: ASPIRIN 81 MG CHEWABLE TABLET PO (07:32)
[2020-08-09] MEDS: CHOLECALCIFEROL 400 UNITS TABLET (VIT D) PO (07:32)
[2020-08-09] MEDS: SODIUM BICARBONATE TAB 650 MG TABLET PO (07:33)
[2020-08-09] MEDS: MULTIVITAMINS /C LUTEIN (CENTRUM SILVER) TABLET *BKC 1 TAB PO (07:33)
[2020-08-09] MEDS: FENOFIBRATE NANOCRYSTALLIZED 145 MG TABLET PO (07:33)
[2020-08-09] MEDS: BISACODYL 10 MG SUPPOSITORY RECTAL (07:33)
[2020-08-09] MEDS: MAGNESIUM OXIDE 400 MG TABLET PO (07:33)
[2020-08-09] MEDS: HYDROcodone/acetaminophen (*CRX) 5-325 MG TABLET 1 TAB PO (07:57)
[2020-08-09 11:32] LABS: Glucose Point of Care 230 (65-105)
[2020-08-09 14:00] VITALS: BP 150/87; PULSE 102; RESP 14; TEMP 37.2; O2SAT 93
--- NOTE | 2020-08-09 14:04 | PM.DS ---
DS: Admitting Diagnosis Admitting Diagnosis Admitting Diagnosis: Acute metabolic encephalopathy DS: Discharge Diagnosis Discharge Diagnosis (1) Altered mental status: Qualifiers: Altered mental status type: unspecified Qualified Code(s): R41.82 - Altered mental status, unspecified Code(s): R41.82 - Altered mental status, unspecified Status: Resolved Assessment and Plan: Patient's altered mental status has resolved -likely due to narcotic use. Narcotics have been decreased and she is currently without pain and appears to be alert and oriented x4 -UA is not suspicious for UTI -WBC improved, 10.1 and considered normal without any evidence of infection -Could be due to advance cancer--brain MRI negative for Mets -Anion gap noted on previous lab draws, see below -patient would like to go home. She understands that she has advanced cancer but does not want to go hospice right now since she has more good days than she has bad days . She will reconsider this when this changes -I have provided the family with Narcan since this is her 2nd admission (2) Acute hyponatremia: Code(s): E87.1 - Hypo-osmolality and hyponatremia Status: Acute Assessment and Plan: Resolved (3) Antineoplastic chemotherapy induced anemia: Code(s): D64.81 - Anemia due to antineoplastic chemotherapy; T45.1X5A - Adverse effect of antineoplastic and immunosuppressive drugs, initial encounter Status: Chronic Assessment and Plan: Chronic -hgb stable at 10.1 (4) Large cell neuroendocrine carcinoma: Code(s): C7A.8 - Other malignant neuroendocrine tumors Status: Chronic Assessment and Plan: She follows with Dr. 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 use: without prison use Diabetes mellitus complication status: without complication Qualified Code(s): E11.9 - Type 2 diabetes mellitus without complications Code(s): E11.9 - Type 2 diabetes mellitus without complications Status: Chronic Assessment and Plan: Last glucose 230 -Metformin stopped due to acidosis - januvia started -Continue home ozempic -A1c 8.0 -educated on hypoglycemia (6) High anion gap metabolic acidosis: Code(s): E87.2 - Acidosis Status: Acute Assessment and Plan: Noted intermittently throughout her stay -improved with IV fluids -pH was normal on ABG -Betahydroxybuterate has been high for unclear reasons. I do not suspect DKA -Could be due to malnutrition, pt has an increased appetitie -ck mildly elevated -salicylate level normal -I do not suspect other toxins -pt on metformin, this has been stopped -no further workup as the patient has advanced cancer and is doing well today as well as yesterday. She would like to go home and she has been discharged (7) Acute metabolic encephalopathy: Code(s): G93.41 - Metabolic encephalopathy Status: Acute DS: Summary Hospital Course Reason for hospitalization: Altered mental status Hospital Course: Patient is a 74-year-old female with advanced cancer on narcotic medications who presented emergency room for altered mental status and lethargy. Patient stated that she had been feeling weak and her blood glucose had been running in the 600s. She recently had an increase in her fentanyl patch dose. She is admitted to hospitalist service and observed. All of her pain medications were stopped which improved her mental status but caused her pain. She was on 3-75 mcg of fentanyl patches which was decreased to 50 mcg and she had no pain on this regimen. She did have [place] as needed as well. It is unclear why she was on so much pain medication prior as she did not have any pain while she was here. Nevertheless, if she continues to have p
[2020-08-09] MEDS: HEPARIN SOD FLUSH 500 UNITS/5 ML SYRINGE IV PUSH (14:42)
[2020-08-09] MEDS: fentaNYL (*CRX) 50 MCG PATCH TRANSDERM (15:38)
--- NOTE | 2020-08-21 09:48 | PC.NURSE ---
Blood cx are negative
== END 2020-08-09 15:58 | disposition home health service (06) ==
LOC: ANHED 17:05 → ANH2MED 17:54
PROVIDERS: Physician Assistant; Admitting Provider Internal Medicine; Emergency Provider Emergency Medicine; PCP Internal Medicine; Visit Provider Internal Medicine
DX: R41.82 Altered mental status, unspecified (principal); E87.1 Hypo-osmolality and hyponatremia; D64.81 Anemia due to antineoplastic chemotherapy; T45.1X5A Adverse effect of antineoplastic and immunosuppressive drugs, initial encounter; C7A.8 Other malignant neuroendocrine tumors; C78.7 Secondary malignant neoplasm of liver and intrahepatic bile duct; C79.51 Secondary malignant neoplasm of bone; E87.2 Acidosis; R53.1 Weakness; Z79.82 Long term (current) use of aspirin; E78.5 Hyperlipidemia, unspecified; E11.9 Type 2 diabetes mellitus without complications; M19.90 Unspecified osteoarthritis, unspecified site; Z90.2 Acquired absence of lung [part of]; Z87.891 Personal history of nicotine dependence; Z79.84 Long term (current) use of oral hypoglycemic drugs; F41.9 Anxiety disorder, unspecified
CPT/HCPCS: 36415; 36600; 51701; 70450; 70553; 71046; 74176; 80048; 80053; 80307; 81001; 82010; 82375; 82550; 82805; 82948; 83050; 83605; 85025; 85027; 86140; 87040; 93005; 96361; 96365; 96366; 96375; 97161; 97165; 99285; A9270; A9577; G0378; J1170; J1642; J1815; J2060; J3480; J7030; J7120